=== PATIENT | female | born 1960 | race Caucasian/White ===

== ENCOUNTER 2017-07-28 17:26 | Emergency (ER) | payer OTHER, MEDICAID, SELFPAY ==
[2017-07-28 17:30] VITALS: BP 147/95; PULSE 103; RESP 22; TEMP 36.5; O2SAT 95; BMI 20.8
--- NOTE | 2017-07-28 17:37 | ED.URI ---
HPI - URI/Sore Throat <Mirtha Resendiz PA-C - Last Filed: 07/28/17 19:01> General Chief Complaint: Upper Respiratory Symptoms Stated Complaint: SICK WITH FLU/VOMITING Time Seen by Provider: 07/28/17 17:37 Source: patient Mode of arrival: ambulatory Limitations: no limitations History of Present Illness HPI Narrative: This 57-year-old female has a history of asthma exacerbations. She had onset of mild sore throat 6 days ago followed by a sinus headache, pressure, and congestion that makes her balance feel a little bit off. She also had onset of severe generalized body aches that lasted 2 or 3 days and have improved now. She is noticing a lot of postnasal drip. Cough started yesterday with a lot of green sputum. She states Slim production is actually improved today. She states she has not had wheeze, but feels more short of breath with cough. She has also had chills and sweats at home, has not checked her temperature. She denies any rash, denies any known specific exposures or recent travel. She notes that she is supposed to be on steroid inhaler but has not been able to get a prescription from her PCP so has been off of that Related Data Home Medications Medication Instructions Recorded Confirmed albuterol sulfate [Ventolin HFA] 2 pump INHALATION Q4-6H PRN 07/28/17 07/28/17 bupropion HCl [Wellbutrin XL] 300 mg PO QAM 07/28/17 07/28/17 duloxetine [Cymbalta] 20 mg PO QAM 07/28/17 07/28/17 lisinopril 10 mg PO DAILY 07/28/17 07/28/17 Previous Rx's Medication Instructions Recorded fluticasone [Flovent HFA] 2 puff INHALATION BID #12 gram 07/28/17 prednisone 40 mg PO DAILY 4 Days #8 tab 07/28/17 Allergies Allergy/AdvReac Type Severity Reaction Status Date / Time No Known Drug Allergies Allergy Verified 07/28/17 17:32 Review of Systems <Mirtha Resendiz PA-C - Last Filed: 07/28/17 19:01> Review of Systems All systems reviewed & are unremarkable except as noted in HPI and below Exam <Mirtha Resendiz PA-C - Last Filed: 07/28/17 19:01> Narrative Exam Narrative: GENERAL APPEARANCE: Patient sitting comfortably, in no distress. HEAD: Mild generalized sinus tenderness EYES: PERRL, EOMI. EARS: Normal auditory canals, TMS intact with normal light reflexes. ORAL CAVITY: Normal oropharynx. THROAT: Minimal erythema NECK/THYROID: Neck supple, full range of motion, no cervical lymphadenopathy. LUNGS: Coarse, congested breath sounds, occasional rhonchi which resolved with nebulizers. No crackles, occasional wet cough on exam HEART: RRR without murmur, nl S1, S2, no S3 or S4. EXTREMITIES: No cyanosis, no edema Initial Vital Signs Initial Vital Signs: Vital Signs Temperature 97.7 F 07/28/17 17:30 Pulse Rate 103 H 07/28/17 17:30 Respiratory Rate 22 07/28/17 17:30 Blood Pressure 147/95 H 07/28/17 17:30 Pulse Oximetry 95 07/28/17 17:30 <Elio Perkins DO - Last Filed: 07/28/17 19:56> Initial Vital Signs Initial Vital Signs: Vital Signs Temperature 97.7 F 07/28/17 17:30 Pulse Rate 103 H 07/28/17 17:30 Respiratory Rate 22 07/28/17 17:30 Blood Pressure 147/95 H 07/28/17 17:30 Pulse Oximetry 95 07/28/17 17:30 Course <Mirtha Resendiz PA-C - Last Filed: 07/28/17 19:01> Orders Ordered: ED Orders 07/28/17 17:39 XR chest 2V Stat 07/28/17 18:11 Influenza A and B by PCR Rapid Stat Discontinued Medications Albuterol (Ventolin) 2.5 mg INH [facility] Last Admin: 07/28/17 18:04 Dose: 2.5 mg Albuterol/Ipratropium (Duoneb) 3 ml INH NOW ONE Stop: 07/28/17 17:40 Last Admin: 07/28/17 17:53 Dose: 3 ml Prednisone (Deltasone) 40 mg PO NOW ONE Stop: 07/28/17 18:37 Last Admin: 07/28/17 18:45 Dose: 40 mg Vital Signs - 8 hr 07/28/17 17:30 07/28/17 17:53 07/28/17 18:05 Temperature 97.7 F Pulse Rate 103 H 92 H 72 Respiratory Rate 22 15 13 Blood Pressure 147/95 H Pulse Oximetry 95 95 96 07/28/17 19:09 Temperature Pulse Rate 101 H Respiratory Rate 18 Blood Pressure 130/90 H Pulse Oximetry 95 <Elio Perkins DO - Last Filed: 07/28/17 19:56> Orders Ordered: ED Orders 07/28/17 17:39 XR chest 2V Stat 07/28/17 18:11 Influenza A and B by PCR Rapid Stat Discontinued Medications Albuterol (Ventolin) 2.5 mg INH [facility] Last Admin: 07/28/17 18:04 Dose: 2.5 mg Albuterol/Ipratropium (Duoneb) 3 ml INH NOW ONE Stop: 07/28/17 17:40 Last Admin: 07/28/17 17:53 Dose: 3 ml Prednisone (Deltasone) 40 mg PO NOW ONE Stop: 07/28/17 18:37 Last Admin: 07/28/17 18:45 Dose: 40 mg Vital Signs - 8 hr 07/28/17 17:30 07/28/17 17:53 07/28/17 18:05 Temperature 97.7 F Pulse Rate 103 H 92 H 72 Respiratory Rate 22 15 13 Blood Pressure 147/95 H Pulse Oximetry 95 95 96 07/28/17 19:09 Temperature Pulse Rate 101 H Respiratory Rate 18 Blood Pressure 130/90 H Pulse Oximetry 95 MDM - URI/Sore Throat <Mirtha Resendiz PA-C - Last Filed: 07/28/17 19:01> Lab Data Attestation: I reviewed the patient's lab results. rapid influenza negative Lab Results 07/28/17 Range/Units 18:11 Influenza A & B (PCR) Negative (Negative) Imaging Data Chest x-ray: Radiologist's impression: View Report History [address] [address] XRay Report Signed Patient: Vera Murrieta MR#: [id number] : 1960 Acct:[id number] Age/Sex: 57 / F Date of Service: 07/28/17 Loc: ED Accession Number: [id number] Procedure: XR chest 2V Ordering Provider: Elio Perkins D.O. PROCEDURE: XR CHEST 2V INDICATIONS: cough, sob, fever 5 days ago TECHNIQUE: 2 views of the chest were acquired. COMPARISON: [facility], , CHEST 2 VIEW, 05/31/2015, 12:37. FINDINGS: Surgical changes and devices: None. Lungs and pleura: No pleural effusions or pneumothorax. There is persistent chronic bronchial wall thickening redemonstrated. There is a nodular opacity projecting over the right lung base likely representing nipple shadow. No focal consolidation. There is hyperinflation of the lungs with flattening of the hemidiaphragms compatible with COPD. Mediastinum: Mediastinal contours are unchanged. Heart size is normal. Bones and chest wall: No suspicious bony abnormalities. Soft tissues appear unremarkable. IMPRESSION: 1. No acute consolidation to suggest pneumonia. 2. Chronic bronchial wall thickening redemonstrated. 2. Nodular opacity in the right hemithorax likely represents nipple shadow. Dictated by: Vikash Stein M.D. on 07/28/2017 at 18:09 Approved by: Vikash Stein M.D. on 07/28/2017 at 18:11 <Elio Perkins DO - Last Filed: 07/28/17 19:56> Lab Data Lab Results 07/28/17 Range/Units 18:11 Influenza A & B (PCR) Negative (Negative) Discharge Plan Departure Patient Disposition: Home, Self-Care Clinical Impression: Exacerbation of asthma, Upper respiratory infection Discharge Date/Time: 07/28/17 19:10 Interventions: ED Discharge Assessment Last Done: 07/28/17 19:09 Instructions: DI for Asthma -- Adult, DI for Viral Upper Respiratory Infection -- Adult Activity Restrictions/Additional Instructions: Since you are feeling better after the breathing treatment, I think you can monitor at home. Your infection appears most likely due to a virus affecting your sinuses and causing postnasal drip, cough, and asthma flare up. I agree with you that you should be back on the steroid inhaler and I have sent a prescription for that to the pharmacy. Start that as soon as you pick it up tomorrow, and continue the prednisone for an additional 4 days also. You can use [id number] Mucinex to help with the chest congestion, and antihistamines and Sudafed as needed to help with the postnasal drip. Please return immediately as we talked about if you are feeling acutely worse again, otherwise call your PCP office 1st thing on Sunday to arrange follow-up Prescriptions: New prednisone 20 mg tablet 40 mg PO DAILY 4 Days Qty: 8 RF: 0 fluticasone [Flovent HFA] 220 mcg/actuation HFA aerosol inhaler 2 puff INHALATION BID Qty: 12 RF: 0 No Action lisinopril 10 mg Tablet 10 mg PO DAILY RF: 0 albuterol sulfate [Ventolin HFA] 90 mcg/actuation HFA aerosol inhaler 2 pump Inhalation Q4-6H PRN (Reason: Wheezing) RF: 0 bupropion HCl [Wellbutrin XL] 300 mg Tablet Extended Release 24 Hr 300 mg PO QAM RF: 0 duloxetine [Cymbalta] 20 mg Capsule,Delayed Release(Dr/Ec) 20 mg PO QAM RF: 0 Referrals: Gurpreet Sosa MD [Primary Care Provider] - <Elio Perkins DO - Last Filed: 07/28/17 19:56> Cosign ED Attending Suzanneature Attestation: I was immediately available in the department for consultation. Documentation has been reviewed. I agree with assessment and plan.
[2017-07-28 17:53] VITALS: PULSE 92; RESP 15; O2SAT 95
[2017-07-28] MEDS: ALBUTEROL/IPRATROPIUM 3 ML AMPUL INH (17:53)
--- NOTE | 2017-07-28 17:54 | ED_ITS ---
HPI - URI/Sore Throat <Mirtha Resendiz PA-C - Last Filed: 07/28/17 19:01> General Chief Complaint: Upper Respiratory Symptoms Stated Complaint: SICK WITH FLU/VOMITING Time Seen by Provider: 07/28/17 17:37 Source: patient Mode of arrival: ambulatory Limitations: no limitations History of Present Illness HPI Narrative: This 57-year-old female has a history of asthma exacerbations. She had onset of mild sore throat 6 days ago followed by a sinus headache, pressure, and congestion that makes her balance feel a little bit off. She also had onset of severe generalized body aches that lasted 2 or 3 days and have improved now. She is noticing a lot of postnasal drip. Cough started yesterday with a lot of green sputum. She states Slim production is actually improved today. She states she has not had wheeze, but feels more short of breath with cough. She has also had chills and sweats at home, has not checked her temperature. She denies any rash, denies any known specific exposures or recent travel. She notes that she is supposed to be on steroid inhaler but has not been able to get a prescription from her PCP so has been off of that Related Data Home Medications Medication Instructions Recorded Confirmed albuterol sulfate [Ventolin HFA] 2 pump INHALATION Q4-6H PRN 07/28/17 07/28/17 bupropion HCl [Wellbutrin XL] 300 mg PO QAM 07/28/17 07/28/17 duloxetine [Cymbalta] 20 mg PO QAM 07/28/17 07/28/17 lisinopril 10 mg PO DAILY 07/28/17 07/28/17 Previous Rx's Medication Instructions Recorded fluticasone [Flovent HFA] 2 puff INHALATION BID #12 gram 07/28/17 prednisone 40 mg PO DAILY 4 Days #8 tab 07/28/17 Allergies Allergy/AdvReac Type Severity Reaction Status Date / Time No Known Drug Allergies Allergy Verified 07/28/17 17:32 Review of Systems <Mirtha Resendiz PA-C - Last Filed: 07/28/17 19:01> Review of Systems All systems reviewed & are unremarkable except as noted in HPI and below Exam <Mirtha Resendiz PA-C - Last Filed: 07/28/17 19:01> Narrative Exam Narrative: GENERAL APPEARANCE: Patient sitting comfortably, in no distress. HEAD: Mild generalized sinus tenderness EYES: PERRL, EOMI. EARS: Normal auditory canals, TMS intact with normal light reflexes. ORAL CAVITY: Normal oropharynx. THROAT: Minimal erythema NECK/THYROID: Neck supple, full range of motion, no cervical lymphadenopathy. LUNGS: Coarse, congested breath sounds, occasional rhonchi which resolved with nebulizers. No crackles, occasional wet cough on exam HEART: RRR without murmur, nl S1, S2, no S3 or S4. EXTREMITIES: No cyanosis, no edema Initial Vital Signs Initial Vital Signs: Vital Signs Temperature 97.7 F 07/28/17 17:30 Pulse Rate 103 H 07/28/17 17:30 Respiratory Rate 22 07/28/17 17:30 Blood Pressure 147/95 H 07/28/17 17:30 Pulse Oximetry 95 07/28/17 17:30 <Elio Perkins DO - Last Filed: 07/28/17 19:56> Initial Vital Signs Initial Vital Signs: Vital Signs Temperature 97.7 F 07/28/17 17:30 Pulse Rate 103 H 07/28/17 17:30 Respiratory Rate 22 07/28/17 17:30 Blood Pressure 147/95 H 07/28/17 17:30 Pulse Oximetry 95 07/28/17 17:30 Course <Mirtha Resendiz PA-C - Last Filed: 07/28/17 19:01> Orders Ordered: ED Orders 07/28/17 17:39 XR chest 2V Stat 07/28/17 18:11 Influenza A and B by PCR Rapid Stat Discontinued Medications Albuterol (Ventolin) 2.5 mg INH [facility] Last Admin: 07/28/17 18:04 Dose: 2.5 mg Albuterol/Ipratropium (Duoneb) 3 ml INH NOW ONE Stop: 07/28/17 17:40 Last Admin: 07/28/17 17:53 Dose: 3 ml Prednisone (Deltasone) 40 mg PO NOW ONE Stop: 07/28/17 18:37 Last Admin: 07/28/17 18:45 Dose: 40 mg Vital Signs - 8 hr 07/28/17 17:30 07/28/17 17:53 07/28/17 18:05 Temperature 97.7 F Pulse Rate 103 H 92 H 72 Respiratory Rate 22 15 13 Blood Pressure 147/95 H Pulse Oximetry 95 95 96 07/28/17 19:09 Temperature Pulse Rate 101 H Respiratory Rate 18 Blood Pressure 130/90 H Pulse Oximetry 95 <Elio Perkins DO - Last Filed: 07/28/17 19:56> Orders Ordered: ED Orders 07/28/17 17:39 XR chest 2V Stat 07/28/17 18:11 Influenza A and B by PCR Rapid Stat Discontinued Medications Albuterol (Ventolin) 2.5 mg INH [facility] Last Admin: 07/28/17 18:04 Dose: 2.5 mg Albuterol/Ipratropium (Duoneb) 3 ml INH NOW ONE Stop: 07/28/17 17:40 Last Admin: 07/28/17 17:53 Dose: 3 ml Prednisone (Deltasone) 40 mg PO NOW ONE Stop: 07/28/17 18:37 Last Admin: 07/28/17 18:45 Dose: 40 mg Vital Signs - 8 hr 07/28/17 17:30 07/28/17 17:53 07/28/17 18:05 Temperature 97.7 F Pulse Rate 103 H 92 H 72 Respiratory Rate 22 15 13 Blood Pressure 147/95 H Pulse Oximetry 95 95 96 07/28/17 19:09 Temperature Pulse Rate 101 H Respiratory Rate 18 Blood Pressure 130/90 H Pulse Oximetry 95 MDM - URI/Sore Throat <Mirtha Resendiz PA-C - Last Filed: 07/28/17 19:01> Lab Data Attestation: I reviewed the patient's lab results. rapid influenza negative Lab Results 07/28/17 Range/Units 18:11 Influenza A & B (PCR) Negative (Negative) Imaging Data Chest x-ray: Radiologist's impression: View Report History [address] [address] XRay Report Signed Patient: Vera Murrieta MR#: [id number] : 1960 Acct:[id number] Age/Sex: 57 / F Date of Service: 07/28/17 Loc: ED Accession Number: [id number] Procedure: XR chest 2V Ordering Provider: Elio Perkins D.O. PROCEDURE: XR CHEST 2V INDICATIONS: cough, sob, fever 5 days ago TECHNIQUE: 2 views of the chest were acquired. COMPARISON: [facility], , CHEST 2 VIEW, 05/31/2015, 12:37. FINDINGS: Surgical changes and devices: None. Lungs and pleura: No pleural effusions or pneumothorax. There is persistent chronic bronchial wall thickening redemonstrated. There is a nodular opacity projecting over the right lung base likely representing nipple shadow. No focal consolidation. There is hyperinflation of the lungs with flattening of the hemidiaphragms compatible with COPD. Mediastinum: Mediastinal contours are unchanged. Heart size is normal. Bones and chest wall: No suspicious bony abnormalities. Soft tissues appear unremarkable. IMPRESSION: 1. No acute consolidation to suggest pneumonia. 2. Chronic bronchial wall thickening redemonstrated. 2. Nodular opacity in the right hemithorax likely represents nipple shadow. Dictated by: Vikash Stein M.D. on 07/28/2017 at 18:09 Approved by: Vikash Stein M.D. on 07/28/2017 at 18:11 <Elio Perkins DO - Last Filed: 07/28/17 19:56> Lab Data Lab Results 07/28/17 Range/Units 18:11 Influenza A & B (PCR) Negative (Negative) Discharge Plan Departure Patient Disposition: Home, Self-Care Clinical Impression: Exacerbation of asthma, Upper respiratory infection Discharge Date/Time: 07/28/17 19:10 Interventions: ED Discharge Assessment Last Done: 07/28/17 19:09 Instructions: DI for Asthma -- Adult, DI for Viral Upper Respiratory Infection -- Adult Activity Restrictions/Additional Instructions: Since you are feeling better after the breathing treatment, I think you can monitor at home. Your infection appears most likely due to a virus affecting your sinuses and causing postnasal drip, cough, and asthma flare up. I agree with you that you should be back on the steroid inhaler and I have sent a prescription for that to the pharmacy. Start that as soon as you pick it up tomorrow, and continue the prednisone for an additional 4 days also. You can use [id number] Mucinex to help with the chest congestion, and antihistamines and Sudafed as needed to help with the postnasal drip. Please return immediately as we talked about if you are feeling acutely worse again, otherwise call your PCP office 1st thing on Sunday to arrange follow-up Prescriptions: New prednisone 20 mg tablet 40 mg PO DAILY 4 Days Qty: 8 RF: 0 fluticasone [Flovent HFA] 220 mcg/actuation HFA aerosol inhaler 2 puff INHALATION BID Qty: 12 RF: 0 No Action lisinopril 10 mg Tablet 10 mg PO DAILY RF: 0 albuterol sulfate [Ventolin HFA] 90 mcg/actuation HFA aerosol inhaler 2 pump Inhalation Q4-6H PRN (Reason: Wheezing) RF: 0 bupropion HCl [Wellbutrin XL] 300 mg Tablet Extended Release 24 Hr 300 mg PO QAM RF: 0 duloxetine [Cymbalta] 20 mg Capsule,Delayed Release(Dr/Ec) 20 mg PO QAM RF: 0 Referrals: Gurpreet Soas MD [Primary Care Provider] - <Elio Perkins DO - Last Filed: 07/28/17 19:56> Cosign ED Attending Suzanneature Attestation: I was immediately available in the department for consultation. Documentation has been reviewed. I agree with assessment and plan.
[2017-07-28] MEDS: ALBUTEROL 2.5 MG/3 ML NEB INH (18:04)
[2017-07-28 18:05] VITALS: PULSE 72; RESP 13; O2SAT 96
[2017-07-28 18:43] LABS: Influenza A and B by PCR Rapid Negative (Negative)
[2017-07-28] MEDS: predniSONE 20 MG TABLET 40 MG PO (18:45)
[2017-07-28 19:09] VITALS: BP 130/90; PULSE 101; RESP 18; O2SAT 95
== END 2017-07-28 19:10 | disposition home or self-care (01) ==
PROVIDERS: Emergency Provider Internal Medicine; Family Provider Internal Medicine; PCP Internal Medicine
DX: J45.909 Unspecified asthma, uncomplicated (principal); J06.9 Acute upper respiratory infection, unspecified
CPT/HCPCS: 71046; 87400; 94640; 99282; 99284; J7613

== ENCOUNTER → 2019-09-29 10:56 | Outpatient (CLI) | payer OTHER, MEDICAID, SELFPAY ==
[2019-09-29 12:06] LABS: Add Manual Diff / Slide Review NO; Basophils Absolute Auto 100 /uL (0-100); Basophils Percent Auto 1.2 % (0-2); Eosinophils Absolute Auto 100 /uL (0-450); Eosinophils Percent Auto 1.3 % (2-4); Hematocrit 40.4 % (36-46); Lymphocytes Absolute Auto 2600 /uL (1100-4500); Lymphocytes Percent Auto 31.6 % (25-40); Mean Corpuscular HGB Conc 34.6 % (30-36); Mean Corpuscular Hemoglobin 34.1 PG (26-34); Mean Corpuscular Volume 98.6 fL (80-100); Monocytes Absolute Auto 500 /uL (0-900); Neutrophils Absolute Auto 4900 /uL (1500-7000); Neutrophils Percent Auto 59.9 % (50-75); Platelet Count 442 X10^3/uL (150-400); Red Cell Distribution Width 13.3 % (11.6-14.8); White Blood Cell Count 8.2 X10^3/uL (4.5-11.0)
[2019-09-29 12:15] LABS: Alanine Aminotransferase 19 IU/L (<35); Albumin 4.7 g/dL (3.5-5.0); Albumin Globulin Ratio 1.6 (1.0-2.8); Alkaline Phosphatase 44 U/L (38-126); Aspartate Aminotransferase 32 IU/L (14-36); BUN Creatinine Ratio 23.5 (6-22); Bilirubin Total 0.4 mg/dL (0.2-1.3); Blood Urea Nitrogen 12 mg/dL (7-17); Calcium 9.7 mg/dL (8.4-10.2); Carbon Dioxide 26 mmol/L (22-32); Chloride 104 mmol/L (98-107); Cholesterol 265 mg/dL (140-199); Estimated Glomerular Filt Rate > 60.0 mL/min (>60); Globulin 2.9 g/dL (1.7-4.1); Glucose 95 mg/dL (80-110); HDL Cholesterol 71 mg/dL (40-60); HEMOLYSIS < 15 (0-50); LDL Cholesterol Calculated 178 mg/dL (<100); Potassium 4.3 mmol/L (3.4-5.1); Sodium 136 mmol/L (137-145); Total Protein 7.6 g/dL (6.3-8.2); Triglycerides 80 mg/dL (35-150)
[2019-09-29 12:46] LABS: TSH w/ Reflex to FT4 2.01 uIU/mL (0.47-4.68)
== END ==
PROVIDERS: Family Provider Internal Medicine; PCP Internal Medicine; Referring Provider Registered Nurse; Visit Provider Registered Nurse
DX: E78.5 Hyperlipidemia, unspecified (principal); I10 Essential (primary) hypertension; D64.9 Anemia, unspecified; F33.1 Major depressive disorder, recurrent, moderate
CPT/HCPCS: 36415; 80053; 80061; 84443; 85025

== ENCOUNTER → 2020-05-25 14:20 | Outpatient (CLI) | payer OTHER, MEDICAID, SELFPAY ==
[2020-05-25] MEDS: COVID-19 VACC #1, MRNA(MOD) 100 MCG/0.5 ML VIAL IM (14:25)
== END ==
PROVIDERS: Family Provider Internal Medicine; PCP Registered Nurse; Visit Provider Internal Medicine
DX: Z23 Encounter for immunization (principal)
CPT/HCPCS: 0011A; 91301

== ENCOUNTER → 2020-06-23 15:48 | Outpatient (CLI) | payer OTHER, MEDICAID, SELFPAY ==
[2020-06-23] MEDS: COVID-19 VACC #2, MRNA(MOD) 100 MCG/0.5 ML VIAL IM (16:01)
== END ==
PROVIDERS: Family Provider Internal Medicine; PCP Registered Nurse; Visit Provider Internal Medicine
DX: Z23 Encounter for immunization (principal)
CPT/HCPCS: 0012A; 91301

== ENCOUNTER → 2020-07-30 08:35 | Outpatient (CLI) | payer OTHER, MEDICAID, SELFPAY ==
[2020-07-30 09:48] LABS: Alanine Aminotransferase 37 IU/L (<35); Albumin 4.4 g/dL (3.5-5.0); Albumin Globulin Ratio 1.5 (1.0-2.8); Alkaline Phosphatase 37 U/L (38-126); Aspartate Aminotransferase 48 IU/L (14-36); BUN Creatinine Ratio 18.6 (6-22); Bilirubin Total 0.3 mg/dL (0.2-1.3); Blood Urea Nitrogen 11 mg/dL (7-17); Calcium 9.8 mg/dL (8.4-10.2); Carbon Dioxide 27 mmol/L (22-32); Chloride 103 mmol/L (98-107); Cholesterol 181 mg/dL (140-199); Estimated Glomerular Filt Rate > 60.0 mL/min (>60); Globulin 2.9 g/dL (1.7-4.1); Glucose 99 mg/dL (80-110); HDL Cholesterol 79 mg/dL (40-60); HEMOLYSIS < 15 (0-50); LDL Cholesterol Calculated 85 mg/dL (<100); Potassium 4.7 mmol/L (3.4-5.1); Sodium 138 mmol/L (137-145); Total Protein 7.3 g/dL (6.3-8.2); Triglycerides 83 mg/dL (35-150)
== END ==
PROVIDERS: Family Provider Internal Medicine; PCP Registered Nurse; Referring Provider Registered Nurse; Visit Provider Registered Nurse
DX: E78.5 Hyperlipidemia, unspecified (principal); I10 Essential (primary) hypertension
CPT/HCPCS: 36415; 80053; 80061

== ENCOUNTER → 2020-09-23 08:53 | Outpatient (CLI) | payer OTHER, MEDICAID, SELFPAY ==
[2020-09-23 10:01] LABS: Alanine Aminotransferase 22 IU/L (<35); Albumin 4.2 g/dL (3.5-5.0); Albumin Globulin Ratio 1.4 (1.0-2.8); Alkaline Phosphatase 38 U/L (38-126); Aspartate Aminotransferase 31 IU/L (14-36); Bilirubin Total 0.5 mg/dL (0.2-1.3); Blood Urea Nitrogen 13 mg/dL (7-17); Calcium 9.8 mg/dL (8.4-10.2); Carbon Dioxide 28 mmol/L (22-32); Chloride 105 mmol/L (98-107); Cholesterol 201 mg/dL (140-199); Estimated Glomerular Filt Rate > 60.0 mL/min (>60); Glucose 93 mg/dL (80-110); HDL Cholesterol 78 mg/dL (40-60); HEMOLYSIS < 15 (0-50); LDL Cholesterol Calculated 108 mg/dL (<100); Potassium 4.7 mmol/L (3.4-5.1); Sodium 139 mmol/L (137-145); Total Protein 7.2 g/dL (6.3-8.2); Triglycerides 74 mg/dL (35-150)
== END ==
PROVIDERS: Family Provider Internal Medicine; PCP Registered Nurse; Referring Provider Registered Nurse; Visit Provider Registered Nurse
DX: I10 Essential (primary) hypertension (principal); E78.5 Hyperlipidemia, unspecified
CPT/HCPCS: 36415; 80053; 80061

== ENCOUNTER → 2022-06-19 10:32 | Outpatient (CLI) | payer OTHER, SELFPAY ==
[2022-06-19 11:54] LABS: Add Manual Diff / Slide Review NO; Basophils Absolute Auto 200 /uL (0-100); Eosinophils Absolute Auto 300 /uL (0-450); Eosinophils Percent Auto 3.3 % (2-4); Hematocrit 41.6 % (36-46); Lymphocytes Absolute Auto 1900 /uL (1100-4500); Lymphocytes Percent Auto 23.8 % (25-40); Mean Corpuscular HGB Conc 33.8 % (30-36); Mean Corpuscular Hemoglobin 33.5 PG (26-34); Mean Corpuscular Volume 99.3 fL (80-100); Monocytes Absolute Auto 800 /uL (0-900); Monocytes Percent Auto 9.9 % (3-14); Neutrophils Absolute Auto 4900 /uL (1500-7000); Platelet Count 435 X10^3/uL (150-400); Red Blood Cell Count 4.19 X10^6/uL (4.0-5.2); White Blood Cell Count 8.1 X10^3/uL (4.5-11.0)
[2022-06-19 12:03] LABS: Alanine Aminotransferase 27 IU/L (<35); Albumin 4.2 g/dL (3.5-5.0); Albumin Globulin Ratio 1.2 (1.0-2.8); Alkaline Phosphatase 44 U/L (38-126); Aspartate Aminotransferase 36 IU/L (14-36); BUN Creatinine Ratio 18.2 (6-22); Bilirubin Total 0.5 mg/dL (0.2-1.3); Blood Urea Nitrogen 10 mg/dL (7-17); Carbon Dioxide 29 mmol/L (22-32); Chloride 102 mmol/L (98-107); Cholesterol 250 mg/dL (140-199); Estimated Glomerular Filt Rate > 60 mL/min (>60); Globulin 3.5 g/dL (1.7-4.1); Glucose 85 mg/dL (80-110); HDL Cholesterol 86 mg/dL (40-60); HEMOLYSIS < 15 (0-50); LDL Cholesterol Calculated 148 mg/dL (<100); Potassium 4.5 mmol/L (3.4-5.1); Sodium 137 mmol/L (137-145); Total Protein 7.7 g/dL (6.3-8.2); Triglycerides 78 mg/dL (35-150)
[2022-06-19 12:41] LABS: TSH w/ Reflex to FT4 2.24 uIU/mL (0.47-4.68)
== END ==
PROVIDERS: Family Provider Internal Medicine; PCP Family Medicine; Referring Provider Family Medicine; Visit Provider Family Medicine
DX: D64.9 Anemia, unspecified (principal); E78.5 Hyperlipidemia, unspecified; F41.8 Other specified anxiety disorders; I10 Essential (primary) hypertension; J30.2 Other seasonal allergic rhinitis; J45.909 Unspecified asthma, uncomplicated
CPT/HCPCS: 36415; 80053; 80061; 84443; 85025

== ENCOUNTER → 2022-07-18 15:32 | Outpatient (CLI) | payer OTHER, SELFPAY ==
--- NOTE | 2022-07-18 15:34 | DI.CT.S_ITS ---
PROCEDURE: CT CHEST WO CON INDICATIONS: Screening for lung cancer TECHNIQUE: Noncontrast 2.0-2.5 mm thick sections acquired from the pulmonary apices to the posterior costophrenic angles. 7 mm thick axial MIP, and 5 mm coronal and sagittal reformats were then acquired. A low radiation dose technique was utilized. COMPARISON: None. FINDINGS: Image quality: Diagnostic, given the low radiation dose technique. There is respiratory motion at the lung bases creating some artifact. Lungs and pleura: Airways demonstrate mild bilateral perihilar bronchial wall thickening with several short-segment airway narrowings. A cluster of small patchy foci of perivascular irregular part solid nodules in superior segment left lower lobe, 4/82. There are no ground-glass opacities or dense consolidations. Mild centrilobular emphysematous changes. Nodules: 1. Lateral subpleural right lower lobe part calcified solid nodule measuring 0.4 cm, 3/261. 2. 2 mm anterolateral left upper lobe solid nodule, 3/113. 3. Subpleural anterolateral lingular 3 mm ground-glass nodule, 3/182. 4. Pleural-based, left lateral lower lobe part solid indistinct nodule measuring 4 mm, 3/266. Mediastinum: Heart size is normal. No pericardial effusion. No mediastinal adenopathy by size criteria. Thoracic aorta and central pulmonary arteries are normal in size. Esophagus is normal in caliber. No hiatal hernia. Bones and chest wall: No suspicious bony lesions. No vertebral body compression fractures. Intact bilateral breast implants. No axillary or supraclavicular adenopathy by size criteria. Thyroid gland is diminutive.. Abdomen: Visualized upper abdomen solid organs and bowel loops appear normal in the absence of contrast. IMPRESSION: 1. Bilateral solid and non solid lung nodules measuring 4 mm and less, benign by size criteria. 2. Small area of perivascular patchy airspace opacity, probably infectious or inflammatory. 3. Findings of mild bronchitis with several small area of airway occlusions. LUNG-RADS two; Continue annual low-dose chest CT screening as long as the patient meets established criteria. Dictated by: Gina Shea M.D. on 07/19/2022 at 10:06 Approved by: Gina Shea M.D. on 07/19/2022 at 10:19
== END ==
PROVIDERS: Family Provider Internal Medicine; PCP Family Medicine; Referring Provider Family Medicine; Visit Provider Family Medicine
DX: Z12.2 Encounter for screening for malignant neoplasm of respiratory organs (principal); R91.8 Other nonspecific abnormal finding of lung field; J45.909 Unspecified asthma, uncomplicated; F41.8 Other specified anxiety disorders; E78.5 Hyperlipidemia, unspecified; D64.9 Anemia, unspecified; I10 Essential (primary) hypertension
CPT/HCPCS: 71250

== ENCOUNTER 2022-07-28 11:57 | Inpatient (IN) | payer OTHER, SELFPAY ==
[2022-07-28] VITALS (29 sets, daily range): BP systolic 113–152; BP diastolic 77–96; PULSE 91–124; RESP 16–25; TEMP 36.1–37.7; O2SAT 89–94; BMI 18.3; BMI 18.9
--- NOTE | 2022-07-28 12:12 | ED.SOB ---
HPI - SOB/Dyspnea General Chief Complaint: Shortness of Breath/Dyspnea Stated Complaint: SOB Time Seen by Provider: 07/28/22 12:03 Mode of arrival: Wheelchair History of Present Illness HPI Narrative: 62-year-old former smoker with history of reported reactive airway disease presents from the walk-in clinic for worsening shortness of breath and cough with production of yellowish sputum for about the past 2 weeks or so. Initially there was some thought about whether this may be related to seasonal allergies but there was not response to antihistamines. She had been seen and evaluated at the walk-in clinic and was placed on steroids. She is been using nebs at home without improvement. She denies runny nose, sore throat. She is had no fever or chills. She denies nausea, vomiting or diarrhea. She becomes increasingly short of breath with exertion and does have some improvement with rest. Related Data Previous Rx's Medication Instructions Recorded albuterol sulfate 90 mcg/actuation 2 puff inhalation Q4-6H PRN asthma 06/19/22 aerosol inhaler #18 grams bupropion HCl 150 mg 24 hr tablet, 150 mg PO QAM #30 tabs 06/19/22 extended release bupropion HCl 75 mg tablet See Rx Instructions .Route 06/19/22 .COMPLEX #7 tabs montelukast 10 mg tablet 10 mg PO BEDTIME #30 tabs 06/19/22 tretinoin 0.1 % topical cream 1 applic topical BEDTIME PRN acne 06/19/22 vulgaris #20 grams varenicline 0.5 mg (11)-1 mg (42) See Rx Instructions PO PER PKG DIR 06/19/22 tablets in a dose pack (Chantix #53 ea Starting Month Box) varenicline 1 mg tablet (Chantix 1 mg PO BID #56 tabs 06/19/22 Continuing Month Box) benzonatate 100 mg capsule 100 mg PO BID PRN cough #20 caps 07/22/22 dextromethorphan polistirex 30 10 ml PO Q12H PRN cough #89 mL 07/22/22 mg/5 mL oral susp ext.release 12hr (Delsym 12 hour) fluticasone propionate 50 1 spray intranasal Q12H #16 grams 07/22/22 mcg/actuation nasal spray,suspension (Flonase Allergy Relief) prednisone 20 mg tablet 40 mg PO DAILY #8 tabs 07/22/22 Allergies Allergy/AdvReac Type Severity Reaction Status Date / Time No Known Drug Allergies Allergy Verified 07/28/22 12:08 Review of Systems Review of Systems Narrative: GENERAL: See HP HEENT: Denies sinus pain, ear pain, sore throat, difficulty swallowing, dizziness. RESPIRATORY: See HPI CARDIOVASCULAR: Denies chest pain, palpitations, orthopnea, edema, GASTROINTESTINAL: Denies nausea, vomiting, abdominal pain, diarrhea, constipation, melena. : Denies dysuria, frequency, incontinence, hematuria, urinary retention. MUSCULOSKELETAL: denies weakness, joint pain, or bony pain SKIN: Denies rash, skin lesions, or other NEUROLOGIC: Denies weakness, headache, numbness, change in speech, confusion, seizures, incoordination. PSYCHIATRIC: No concerning psychosocial issues. 12 point review of systems is negative except for those stated above Patient History Medical History Anemia Anxiety and depression Asthma Colon cancer screening Depression, major, recurrent, moderate Elevated liver enzymes Encounter for smoking cessation counseling Essential hypertension History of ITP Hyperlipidemia Pancreatitis Seasonal allergies Surgical History History of splenectomy Social History Smoking Status: Former smoker alcohol intake: current Smoking Status: Former smoker alcohol intake frequency: 0-2 drinks per day Alcohol type: wine Substance Use Type: does not use Exam Narrative Exam Narrative: GENERAL: [62] year old patient appears stated age. Well-developed patient, in mild distress. HEAD: Atraumatic. Normocephalic. EYES: Pupils equal round and reactive. Extraocular motions intact. No scleral icterus. No injection or drainage. ENT: Nose without bleeding, purulent drainage. Throat without erythema, tonsillar hypertrophy or exudate. Airway patent. NECK: Trachea midline. Non tender CARDIOVASCULAR: Regular rate and rhythm without murmurs, gallops, or rubs. RESPIRATORY: Decreased breath sounds throughout with faint crackles in bilateral bases, there is increased work of breathing but no significant hypoxemia GASTROINTESTINAL: Abdomen soft, non-tender, nondistended. EXTREMITIES: No edema or joint tenderness. BACK: Nontender without deformity or crepitance. No flank tenderness. NEURO: AOx3. SKIN: No rash or erythema of visible areas Initial Vital Signs Initial Vital Signs: Vital Signs Temperature 99.8 F H 07/28/22 12:04 Respiratory Rate 23 07/28/22 12:04 Blood Pressure 152/94 H 07/28/22 12:04 Pulse Oximetry 91 07/28/22 12:04 Oxygen Delivery Method Room Air 07/28/22 12:04 Course Orders Ordered: ED Orders 07/28/22 12:07 Complete Blood Count AUTO DIFF Stat Comprehensive Metabolic Panel Stat D Dimer Stat Lactate (Lactic Acid) Stat Lipase Stat Magnesium Stat NT-proBNP (BNP-Adult 18+) Stat Procalcitonin Stat Prothrombin Time INR Stat Respiratory Panel (Film Array) Stat Troponin & CK Cardiac Panel Stat 07/28/22 12:08 Measure peak expiratory flow ONCE 07/28/22 12:14 EKG-12 Lead Stat 07/28/22 12:35 CT angio chest PE protocol Stat Sputum Culture Stat 07/28/22 13:40 Blood Culture Stat Albuterol/Ipratropium (Albuterol/Ipratropium 3 Ml Ampul) 3 ml INH Q1H PRN PRN Reason: Shortness Of Breath Last Admin: 07/28/22 12:36 Dose: 3 ml Documented By: SAT Discontinued Medications Sodium Chloride (Normal Saline 0.9%) 1,000 mls @ 1,000 mls/hr IV BOLUS ONE Stop: 07/28/22 13:07 Last Infusion: 07/28/22 13:45 Dose: 0 mls/hr Documented By: Infusion: 07/28/22 13:02 Dose: 1,000 mls/hr Documented By: Infusion: 07/28/22 12:40 Dose: 0 mls/hr Documented By: Admin: 07/28/22 12:17 Dose: 1,000 mls/hr Documented By: FLAVIA Ceftriaxone Sodium 1,000 mg/ (Sodium Chloride) 100 mls @ 200 mls/hr IV NOW ONE Stop: 07/28/22 14:01 Azithromycin 500 mg/ Dextrose 250 mls @ 250 mls/hr IV NOW ONE Stop: 07/28/22 14:01 Methylprednisolone (Methylprednisolone 125 Mg/2 Ml Vial) 125 mg IV NOW ONE Stop: 07/28/22 12:09 Last Admin: 07/28/22 12:16 Dose: 125 mg Documented By: FLAVIA Vital Signs Vital signs: Vital Signs - 8 hr 07/28/22 12:04 07/28/22 12:06 07/28/22 12:15 Temperature 99.8 F H Pulse Rate 124 H 121 H Respiratory Rate 23 22 Blood Pressure 152/94 H Pulse Oximetry 91 93 94 Oxygen Delivery Method Room Air 07/28/22 12:30 07/28/22 12:30 07/28/22 12:50 Temperature Pulse Rate 119 H 119 H Respiratory Rate 20 Blood Pressure 130/88 Pulse Oximetry 93 Oxygen Delivery Method 07/28/22 12:51 07/28/22 12:51 07/28/22 13:00 Temperature Pulse Rate 118 H Respiratory Rate 20 Blood Pressure 150/90 H 134/78 Pulse Oximetry 91 Oxygen Delivery Method 07/28/22 13:00 07/28/22 13:40 07/28/22 13:15 Temperature Pulse Rate 114 H 120 H 120 H Respiratory Rate 18 20 Blood Pressure Pulse Oximetry 92 92 91 Oxygen Delivery Method Room Air 07/28/22 13:30 07/28/22 13:30 07/28/22 13:45 Temperature Pulse Rate 114 H 117 H Respiratory Rate 17 20 Blood Pressure 133/85 Pulse Oximetry 93 94 Oxygen Delivery Method MDM - SOB/Dyspnea Lab Data 07/28/22 12:07 07/28/22 12:07 Labs: Lab Results 07/28/22 07/28/22 07/28/22 Range/Units 12:07 12:07 12:07 WBC 26.0 H (4.5-11.0) X10^3/uL RBC 4.07 (4.0-5.2) X10^6/uL Hgb 13.8 (12.0-16.0) g/dL Hct 39.8 (36-46) % MCV 97.9 (80-100) fL MCH 33.8 (26-34) PG MCHC 34.6 (30-36) % RDW 13.4 (11.6-14.8) % Plt Count 609 H (150-400) X10^3/uL Neut % (Auto) 82.9 H (50-75) % Lymph % (Auto) 6.5 L (25-40) % [place] % (Auto) 9.5 (3-14) % Eos % (Auto) 0.8 L (2-4) % Baso % (Auto) 0.3 (0-2) % Neut # (Auto) 33304 H (0555-9313) /uL Lymph # (Auto) 1700 (4914-2032) /uL [place] # (Auto) 2500 H (0-900) /uL Eos # (Auto) 200 (0-450) /uL Baso # (Auto) 100 (0-100) /uL PT 13.7 H (10.1-12.7) SECONDS INR 1.2 (0.9-1.3) D-Dimer 1032 H (<500) ng/ml Sodium 131 L (137-145) mmol/L Potassium 4.0 (3.4-5.1) mmol/L Chloride 96 L (98-107) mmol/L Carbon Dioxide 27 (22-32) mmol/L BUN 8 (7-17) mg/dL Creatinine 0.47 L (0.52-1.04) mg/dL Estimated GFR > 60 (>60) mL/min BUN/Creatinine Ratio 17.0 (6-22) Glucose 134 H (80-110) mg/dL Lactate (0.7-2.1) mmol/L Calcium 9.4 (8.4-10.2) mg/dL Magnesium 2.0 (1.6-2.3) mg/dL Total Bilirubin 0.4 (0.2-1.3) mg/dL AST 26 (14-36) IU/L ALT 24 (<35) IU/L Alkaline Phosphatase 87 (38-126) U/L Total Creatine Kinase 64 (30-135) U/L CK-MB (CK-2) TNP CK-MB (CK-2) Rel Index TNP Troponin I < 0.012 (0.01-0.034) ng/mL NT-Pro-B Natriuret Pep 47 (<125) pg/mL Total Protein 8.1 (6.3-8.2) g/dL Albumin 4.2 (3.5-5.0) g/dL Globulin 3.9 (1.7-4.1) g/dL Albumin/Globulin Ratio 1.1 (1.0-2.8) Lipase 69 (23-300) U/L Procalcitonin 0.07 (<0.5) ng/mL Chlamy pneumoniae PCR (Not Detect) Adenovirus (PCR) (Not Detect) B. pertussis DNA (PCR) (Not Detecte) B.parapertussis DNA PCR (Not Detecte) Coronavirus OC43 (PCR) (Not Detect) Coronavirus HKU1 (PCR) (Not Detect) Coronavirus 229E (PCR) (Not Detect) SARS-CoV-2 (PCR) (Not Detecte) Coronavirus NL63 (PCR) (Not Detect) Human Metapneumovir PCR (Not Detect) Influenza Type A (PCR) (Not Detect) Influenza Type B (PCR) (Not Detect) M. pneumoniae (PCR) (Not Detect) Parainfluenza 1 (PCR) (Not Detect) Parainfluenza 2 (PCR) (Not Detect) Parainfluenza 3 (PCR) (Not Detect) Parainfluenza 4 (PCR) (Not Detect) RSV (PCR) (Not Detect) Entero/Rhino (PCR) (Not Detect) 07/28/22 07/28/22 Range/Units 12:07 12:07 WBC (4.5-11.0) X10^3/uL RBC (4.0-5.2) X10^6/uL Hgb (12.0-16.0) g/dL Hct (36-46) % MCV (80-100) fL MCH (26-34) PG MCHC (30-36) % RDW (11.6-14.8) % Plt Count (150-400) X10^3/uL Neut % (Auto) (50-75) % Lymph % (Auto) (25-40) % [place] % (Auto) (3-14) % Eos % (Auto) (2-4) % Baso % (Auto) (0-2) % Neut # (Auto) (3289-8974) /uL Lymph # (Auto) (2490-3963) /uL [place] # (Auto) (0-900) /uL Eos # (Auto) (0-450) /uL Baso # (Auto) (0-100) /uL PT (10.1-12.7) SECONDS INR (0.9-1.3) D-Dimer (<500) ng/ml Sodium (137-145) mmol/L Potassium (3.4-5.1) mmol/L Chloride (98-107) mmol/L Carbon Dioxide (22-32) mmol/L BUN (7-17) mg/dL Creatinine (0.52-1.04) mg/dL Estimated GFR (>60) mL/min BUN/Creatinine Ratio (6-22) Glucose (80-110) mg/dL Lactate 1.1 (0.7-2.1) mmol/L Calcium (8.4-10.2) mg/dL Magnesium (1.6-2.3) mg/dL Total Bilirubin (0.2-1.3) mg/dL AST (14-36) IU/L ALT (<35) IU/L Alkaline Phosphatase (38-126) U/L Total Creatine Kinase (30-135) U/L CK-MB (CK-2) CK-MB (CK-2) Rel Index Troponin I (0.01-0.034) ng/mL NT-Pro-B Natriuret Pep (<125) pg/mL Total Protein (6.3-8.2) g/dL Albumin (3.5-5.0) g/dL Globulin (1.7-4.1) g/dL Albumin/Globulin Ratio (1.0-2.8) Lipase (23-300) U/L Procalcitonin (<0.5) ng/mL Chlamy pneumoniae PCR Not detected (Not Detect) Adenovirus (PCR) Not detected (Not Detect) B. pertussis DNA (PCR) Not detected (Not Detecte) B.parapertussis DNA PCR Not detected (Not Detecte) Coronavirus OC43 (PCR) Not detected (Not Detect) Coronavirus HKU1 (PCR) Not detected (Not Detect) Coronavirus 229E (PCR) Not detected (Not Detect) SARS-CoV-2 (PCR) Not detected (Not Detecte) Coronavirus NL63 (PCR) Not detected (Not Detect) Human Metapneumovir PCR Not detected (Not Detect) Influenza Type A (PCR) Not detected (Not Detect) Influenza Type B (PCR) Not detected (Not Detect) M. pneumoniae (PCR) Not detected (Not Detect) Parainfluenza 1 (PCR) Not detected (Not Detect) Parainfluenza 2 (PCR) Not detected (Not Detect) Parainfluenza 3 (PCR) Not detected (Not Detect) Parainfluenza 4 (PCR) Not detected (Not Detect) RSV (PCR) Not detected (Not Detect) Entero/Rhino (PCR) Not detected (Not Detect) Urine Dip Bedside Urine Glucose Negative Bedside Urine Bilirubin - Negative Bedside Urine Ketone - Negative Urine Specific [place] 1.005 Bedside Urine Occult Blood - Negative Bedside Urine pH 7.5 Bedside Urine Protein - Negative Bedside Urine Urobilinogen - Negative Bedside Urine Nitrite - Negative Bedside Urine Leukocytes - Negative Esterase MDM Narrative Medical decision making narrative: 62-year-old female former smoker has progressive worsening shortness of breath over the past 2 weeks and had little to no response to antihistamines, steroids and bronchodilators. She is had increasing production of yellowish sputum and had presented to the walk-in clinic for follow-up today and was redirected here given worsening symptoms and abnormal vital signs. She does have leukocytosis and relative left shift, critically elevated D-dimer and a CT angiogram of the chest was ordered which thankfully demonstrates no evidence of a large central pulmonary embolism but evidence suggestive of an infectious versus inflammatory process. Given the severity of her symptoms and abnormal vital signs patient will be hospitalized and treated for pneumonia, sputum culture and blood cultures are pending. Hospitalist is happy to bring on to her service. We discussed the patient's clinical course and she recommends initial treatment with Rocephin and azithromycin in the emergency department and will make alterations as needed. Patient understands and agrees with the diagnosis and plan Discharge Plan Departure Patient Disposition: Admitted as Observation Clinical Impression: Acute dyspnea, Pneumonia Admit Date/Time: 07/28/22 14:03
[2022-07-28] MEDS: methylPREDNISolone 125 MG/2 ML VIAL IV (12:16)
[2022-07-28] MEDS: SODIUM CHLORIDE 0.9% 1,000 ML 1000 ML IV (12:17)
[2022-07-28 12:22] LABS: INR 1.2 (0.9-1.3); Prothrombin Time 13.7 SECONDS (10.1-12.7)
[2022-07-28 12:24] LABS: D Dimer 1032 ng/ml (<500)
[2022-07-28 12:30] LABS: Lactate (Lactic Acid) 1.1 mmol/L (0.7-2.1)
[2022-07-28 12:31] LABS: Alanine Aminotransferase 24 IU/L (<35); Albumin 4.2 g/dL (3.5-5.0); Albumin Globulin Ratio 1.1 (1.0-2.8); Alkaline Phosphatase 87 U/L (38-126); Aspartate Aminotransferase 26 IU/L (14-36); Bilirubin Total 0.4 mg/dL (0.2-1.3); Blood Urea Nitrogen 8 mg/dL (7-17); Calcium 9.4 mg/dL (8.4-10.2); Carbon Dioxide 27 mmol/L (22-32); Chloride 96 mmol/L (98-107); Creatine Kinase 64 U/L (30-135); Estimated Glomerular Filt Rate > 60 mL/min (>60); Globulin 3.9 g/dL (1.7-4.1); Glucose 134 mg/dL (80-110); Lipase 69 U/L (23-300); Sodium 131 mmol/L (137-145); Total Protein 8.1 g/dL (6.3-8.2)
[2022-07-28 12:32] LABS: Add Manual Diff / Slide Review NO; Basophils Absolute Auto 100 /uL (0-100); Basophils Percent Auto 0.3 % (0-2); Eosinophils Absolute Auto 200 /uL (0-450); Eosinophils Percent Auto 0.8 % (2-4); Hematocrit 39.8 % (36-46); Hemoglobin 13.8 g/dL (12.0-16.0); Lymphocytes Absolute Auto 1700 /uL (1100-4500); Lymphocytes Percent Auto 6.5 % (25-40); Mean Corpuscular HGB Conc 34.6 % (30-36); Mean Corpuscular Hemoglobin 33.8 PG (26-34); Mean Corpuscular Volume 97.9 fL (80-100); Monocytes Absolute Auto 2500 /uL (0-900); Monocytes Percent Auto 9.5 % (3-14); Neutrophils Absolute Auto 21600 /uL (1500-7000); Neutrophils Percent Auto 82.9 % (50-75); Platelet Count 609 X10^3/uL (150-400); Red Blood Cell Count 4.07 X10^6/uL (4.0-5.2); Red Cell Distribution Width 13.4 % (11.6-14.8)
--- NOTE | 2022-07-28 12:35 | DI.CT.S_ITS ---
PROCEDURE: CT ANGIO CHEST PE PROTOCOL INDICATIONS: SOB, tachycardia, worsening, critical Dimer TECHNIQUE: After the administration of intravenous contrast, 2 mm thick sections acquired from the pulmonary apices to the posterior costophrenic angles. 3-dimensional maximum intensity projection (MIP) coronal and sagittal reformats were then acquired through the thorax. For radiation dose reduction, the following was used: automated exposure control, adjustment of mA and/or kV according to patient size. COMPARISON: [facility], CT, CT CHEST WO CON, 07/18/2022, 15:40. FINDINGS: Image quality: Excellent. Pulmonary arteries: Pulmonary arteries are normal in size, and demonstrate no intraluminal filling defects to suggest central pulmonary embolism. Lungs and pleura: Scattered tree-in-bud nodularity is seen throughout both lungs, most prominent at the left lung base, which is new when compared to the CT from 07/18/2022 and is suspicious for an infectious or inflammatory process. There is chronic bronchial wall thickening bilaterally. No pleural effusions or pneumothorax. Mediastinum: Heart size is normal, without pericardial effusion. Mild coronary artery calcifications. No mediastinal or hilar adenopathy. Thoracic aorta is normal in caliber and enhancement. Esophagus is normal in caliber, without hiatal hernia. Bones and chest wall: Bilateral retropectoral saline implants are intact. No suspicious bony lesions. A nondisplaced fracture at the anterolateral aspect the left 6th rib demonstrates mild healing changes that are new when compared to the prior exam. Chronic deformity of the left 12th rib. Thyroid is unremarkable. No axillary or supraclavicular adenopathy. Abdomen: Status post splenectomy. Visualized upper abdominal solid organs appear normal in the early arterial phase of enhancement. IMPRESSION: 1. No acute pulmonary embolus. 2. Scattered tree-in-bud nodularity in both lungs is new when compared to the CT from 07/18/2022 and is suspicious for an infectious or inflammatory process. 3. Subacute nondisplaced fracture of the anterolateral left 6th rib. Approved by: Danish Kong M.D. on 07/28/2022 at 13:10
[2022-07-28] MEDS: ALBUTEROL/IPRATROPIUM 3 ML AMPUL INH (12:36)
[2022-07-28 12:45] LABS: HEMOLYSIS < 15 (0-50); NT-proBNP (BNP-Adult 18+) 47 pg/mL (<125); Procalcitonin 0.07 ng/mL (<0.5); Troponin I < 0.012 ng/mL (0.01-0.034)
[2022-07-28 14:02] LABS: Adenovirus Not Detected (Not Detect); B. parapertussis Not Detected (Not Detecte); Bordetella pertussis Not Detected (Not Detecte); Chlamydophila pneumoniae Not Detected (Not Detect); Coronavirus 229E Not Detected (Not Detect); Coronavirus HKU1 Not Detected (Not Detect); Coronavirus NL 63 Not Detected (Not Detect); Coronavirus OC43 Not Detected (Not Detect); Human Metapneumovirus Not Detected (Not Detect); Human Rhinovirus/Enterovirus Not Detected (Not Detect); Influenza A Not Detected (Not Detect); Influenza B Not Detected (Not Detect); Mycoplasma pneumoniae Not Detected (Not Detect); Parainfluenza Virus 1 Not Detected (Not Detect); Parainfluenza Virus 2 Not Detected (Not Detect); Parainfluenza Virus 3 Not Detected (Not Detect); Parainfluenza Virus 4 Not Detected (Not Detect); Respiratory Syncytial Virus Not Detected (Not Detect); SARS- CoV-2 Not Detected (Not Detecte)
[2022-07-28] MEDS: cefTRIAXone 1,000 MG in SODIUM CHLORIDE 0.9% 100 ML 200 MG IV (14:10)
[2022-07-28] MEDS: AZITHROMYCIN 500 MG in DEXTROSE 5% IN WATER 250 ML 250 MG IV (14:46)
--- NOTE | 2022-07-28 15:18 | PC.NURSE ---
Patient oxygen saturation wasn't maintaining above 98% on room air. This RN placed patient on 2L nasal cannula and provider informed. Patient wasn't consistently placing over 92% on 2L. Hospitialist in room and patient moved to 4L via nasal cannula and was able to maintain saturation above 92%. Information [facility] for [facility].
--- NOTE | 2022-07-28 15:20 | P.HP_ITS ---
History of Present Illness History of Present Illness Chief complaint: SOB Narrative: 62-year-old female with remote history of ITP status post splenectomy complicated by pancreatitis and splenic wound bed abscess, asthma, longstanding tobacco dependence, and major depressive disorder who presented to the emergency department with 2 week history of shortness of breath. Patient reports that approximately 2 weeks ago she developed what she thought was allergy/asthma symptoms. She states she had an increased cough during the day. She initially thought it was just a flare-up of her asthma from environmentally allergens. She states she coughed a lot during the day. She also noted decreased appetite. She presented to the walk-in clinic on July 22. At that time, it was felt she likely was having allergy/asthma exacerbation. She was placed on Delsym, Flonase, ipratropium nasal spray, Tessalon Perles, and a 40 mg prednisone dose for 4 days. Despite these interventions, patient reports she continued to worsen. She is had increasing post-tussive cough. She noted her sputum has changed from white to brown a few days ago. She is feeling weak, tired, and having increased fatigue. She states she is waking up at night feeling short of breath. She notes she is lost approximately 9 lb, as she was 130 lb at her family doctor visit and is now 121 lb. She reports subjective fevers but notes that a friend checked her temperature for her and she was afebrile. She has had chills and sweats. No dysphagia. She reports a history of pneumonia on 2 or 3 other occasions in her life, 1 episode at the age of 19, in the last 6 or 7 years ago. She is somewhat vague about her tobacco use history. She states she smoked approximately 1 pack per day. She states she quit 4-5 years ago for 3 years, b ut then started again, and then reports she has since stopped. At her primary care office visit last month, she reported ongoing tobacco use. [facility] Medical History Anemia Anxiety and depression Asthma Colon cancer screening Depression, major, recurrent, moderate Elevated liver enzymes Encounter for smoking cessation counseling Essential hypertension History of ITP Hyperlipidemia Pancreatitis Seasonal allergies Surgical History History of splenectomy Family History (Updated 07/28/22 @ 15:27 by Eileen Stinson MD) Father Hypertension Mother Stroke Brother CAD (coronary artery disease) Brother Renal failure Social History household members: children Smoking Status: Former smoker alcohol intake: current Comment: Patient was smoking as recently as last month. She drinks 2 glasses of wine daily. She lives home alone. She works as a caregiver. Meds Home Medications and Allergies Home Medications Medication Instructions Recorded Confirmed Type albuterol sulfate 90 mcg/actuation 2 puff inhalation Q4-6H PRN asthma 06/19/22 06/19/22 Rx aerosol inhaler #18 grams bupropion HCl 150 mg 24 hr tablet, 150 mg PO QAM #30 tabs 06/19/22 06/19/22 Rx extended release bupropion HCl 75 mg tablet See Rx Instructions .Route 06/19/22 06/19/22 Rx .COMPLEX #7 tabs montelukast 10 mg tablet 10 mg PO BEDTIME #30 tabs 06/19/22 06/19/22 Rx tretinoin 0.1 % topical cream 1 applic topical BEDTIME PRN acne 06/19/22 06/19/22 Rx vulgaris #20 grams varenicline 0.5 mg (11)-1 mg (42) See Rx Instructions PO PER PKG DIR 06/19/22 06/19/22 Rx tablets in a dose pack (Chantix #53 ea Starting Month Box) varenicline 1 mg tablet (Chantix 1 mg PO BID #56 tabs 06/19/22 06/19/22 Rx Continuing Month Box) benzonatate 100 mg capsule 100 mg PO BID PRN cough #20 caps 07/22/22 07/22/22 Rx dextromethorphan polistirex 30 10 ml PO Q12H PRN cough #89 mL 07/22/22 07/22/22 Rx mg/5 mL oral susp ext.release 12hr (Delsym 12 hour) fluticasone propionate 50 1 spray intranasal Q12H #16 grams 07/22/22 07/22/22 Rx mcg/actuation nasal spray,suspension (Flonase Allergy Relief) prednisone 20 mg tablet 40 mg PO DAILY #8 tabs 07/22/22 07/22/22 Rx Allergies Allergy/AdvReac Type Severity Reaction Status Date / Time No Known Drug Allergies Allergy Verified 07/28/22 12:08 Review of Systems Review of Systems Narrative: All other systems were reviewed negative Exam Vital Signs (past 8 hours): - 07/28/22 12:04 07/28/22 12:06 07/28/22 12:15 Temperature 99.8 F H Pulse Rate 124 H 121 H Respiratory Rate 23 22 Blood Pressure 152/94 H Pulse Oximetry 91 93 94 Oxygen Delivery Method Room Air Oxygen Flow Rate 07/28/22 12:30 07/28/22 12:30 07/28/22 12:50 Temperature Pulse Rate 119 H 119 H Respiratory Rate 20 Blood Pressure 130/88 Pulse Oximetry 93 Oxygen Delivery Method Oxygen Flow Rate 07/28/22 12:51 07/28/22 12:51 07/28/22 13:00 Temperature Pulse Rate 118 H Respiratory Rate 20 Blood Pressure 150/90 H 134/78 Pulse Oximetry 91 Oxygen Delivery Method Oxygen Flow Rate 07/28/22 13:00 07/28/22 13:40 07/28/22 13:15 Temperature Pulse Rate 114 H 120 H 120 H Respiratory Rate 18 20 Blood Pressure Pulse Oximetry 92 92 91 Oxygen Delivery Method Room Air Oxygen Flow Rate 07/28/22 13:30 07/28/22 13:30 07/28/22 13:45 Temperature Pulse Rate 114 H 117 H Respiratory Rate 17 20 Blood Pressure 133/85 Pulse Oximetry 93 94 Oxygen Delivery Method Oxygen Flow Rate 07/28/22 14:00 07/28/22 14:00 07/28/22 14:15 Temperature Pulse Rate 116 H 114 H Respiratory Rate 20 21 Blood Pressure 136/80 Pulse Oximetry 91 89 L Oxygen Delivery Method Room Air Room Air Oxygen Flow Rate 07/28/22 14:20 07/28/22 14:25 07/28/22 14:30 Temperature Pulse Rate 118 H 113 H Respiratory Rate 20 17 Blood Pressure 131/82 Pulse Oximetry 91 91 Oxygen Delivery Method Nasal Cannula Nasal Cannula Oxygen Flow Rate 2 2 07/28/22 14:30 07/28/22 14:35 07/28/22 14:40 Temperature Pulse Rate 114 H 114 H 115 H Respiratory Rate 18 20 22 Blood Pressure Pulse Oximetry 91 91 91 Oxygen Delivery Method Nasal Cannula Nasal Cannula Nasal Cannula Oxygen Flow Rate 2 2 2 07/28/22 14:45 07/28/22 14:45 07/28/22 14:50 Temperature Pulse Rate 112 H 112 H Respiratory Rate 21 22 Blood Pressure 126/80 Pulse Oximetry 91 92 Oxygen Delivery Method Nasal Cannula Nasal Cannula Oxygen Flow Rate 2 4 07/28/22 14:55 07/28/22 15:00 07/28/22 15:00 Temperature Pulse Rate 114 H 114 H Respiratory Rate 20 24 Blood Pressure 133/79 Pulse Oximetry 92 93 Oxygen Delivery Method Nasal Cannula Nasal Cannula Oxygen Flow Rate 4 4 07/28/22 15:05 07/28/22 15:10 07/28/22 15:15 Temperature Pulse Rate 114 H 112 H Respiratory Rate 21 23 Blood Pressure 129/79 Pulse Oximetry 94 93 Oxygen Delivery Method Nasal Cannula Nasal Cannula Oxygen Flow Rate 4 4 07/28/22 15:15 Temperature Pulse Rate 112 H Respiratory Rate 25 H Blood Pressure Pulse Oximetry 93 Oxygen Delivery Method Nasal Cannula Oxygen Flow Rate 4 Oxygen Delivery Method Nasal Cannula Oxygen Flow Rate 4 Narrative Exam Narrative: GEN: Middle-aged female, chronically ill-appearing, Alert and oriented x3, no acute distress HEENT: Normocephalic, face symmetric, pupils equal round reactive to light, extraocular movements intact, sclerae anicteric, conjunctiva clear, nares patent, oropharynx reveals an intact soft and hard palate with moist mucous membranes, dentition is fair NECK: Supple, no lymphadenopathy, thyroid without enlargement or nodularity, carotids no bruits CHEST: Respiratory excursions symmetric, scattered expiratory wheezes anteriorly, mild fine crackles at end inspiration bilaterally CV: Mildly tachycardic with regular rhythm, no murmurs, rubs, gallops, PMI nondisplaced ABD: Soft, nontender, nondistended, bowel sounds present in all 4 quadrants, no organomegaly or masses appreciated EXTR: Warm, well perfused, no clubbing/cyanosis/edema SKIN: Warm and dry, without rash NEURO: Alert and oriented x3, cranial nerves 2 through 12 are intact and symmetric bilaterally, motor strength 5/5 throughout, sensation intact throughout PSYCH: Mood and affect is within normal limits, judgment and insight are appropriate Objective Labs 07/28/22 12:07 07/28/22 12:07 Labs: Laboratory Results - last 24 hr 07/28/22 07/28/22 07/28/22 12:07 12:07 12:07 WBC 26.0 H RBC 4.07 Hgb 13.8 Hct 39.8 MCV 97.9 MCH 33.8 MCHC 34.6 RDW 13.4 Plt Count 609 H Neut % (Auto) 82.9 H Lymph % (Auto) 6.5 L [place] % (Auto) 9.5 Eos % (Auto) 0.8 L Baso % (Auto) 0.3 Neut # (Auto) 71561 H Lymph # (Auto) 1700 [place] # (Auto) 2500 H Eos # (Auto) 200 Baso # (Auto) 100 PT 13.7 H INR 1.2 D-Dimer 1032 H Sodium 131 L Potassium 4.0 Chloride 96 L Carbon Dioxide 27 BUN 8 Creatinine 0.47 L Estimated GFR > 60 BUN/Creatinine Ratio 17.0 Glucose 134 H Lactate Calcium 9.4 Magnesium 2.0 Total Bilirubin 0.4 AST 26 ALT 24 Alkaline Phosphatase 87 Total Creatine Kinase 64 CK-MB (CK-2) TNP CK-MB (CK-2) Rel Index TNP Troponin I < 0.012 NT-Pro-B Natriuret Pep 47 Total Protein 8.1 Albumin 4.2 Globulin 3.9 Albumin/Globulin Ratio 1.1 Lipase 69 Procalcitonin 0.07 Chlamy pneumoniae PCR Adenovirus (PCR) B. pertussis DNA (PCR) B.parapertussis DNA PCR Coronavirus OC43 (PCR) Coronavirus HKU1 (PCR) Coronavirus 229E (PCR) SARS-CoV-2 (PCR) Coronavirus NL63 (PCR) Human Metapneumovir PCR Influenza Type A (PCR) Influenza Type B (PCR) M. pneumoniae (PCR) Parainfluenza 1 (PCR) Parainfluenza 2 (PCR) Parainfluenza 3 (PCR) Parainfluenza 4 (PCR) RSV (PCR) Entero/Rhino (PCR) 07/28/22 07/28/22 12:07 12:07 WBC RBC Hgb Hct MCV MCH MCHC RDW Plt Count Neut % (Auto) Lymph % (Auto) [place] % (Auto) Eos % (Auto) Baso % (Auto) Neut # (Auto) Lymph # (Auto) [place] # (Auto) Eos # (Auto) Baso # (Auto) PT INR D-Dimer Sodium Potassium Chloride Carbon Dioxide BUN Creatinine Estimated GFR BUN/Creatinine Ratio Glucose Lactate 1.1 Calcium Magnesium Total Bilirubin AST ALT Alkaline Phosphatase Total Creatine Kinase CK-MB (CK-2) CK-MB (CK-2) Rel Index Troponin I NT-Pro-B Natriuret Pep Total Protein Albumin Globulin Albumin/Globulin Ratio Lipase Procalcitonin Chlamy pneumoniae PCR Not detected Adenovirus (PCR) Not detected B. pertussis DNA (PCR) Not detected B.parapertussis DNA PCR Not detected Coronavirus OC43 (PCR) Not detected Coronavirus HKU1 (PCR) Not detected Coronavirus 229E (PCR) Not detected SARS-CoV-2 (PCR) Not detected Coronavirus NL63 (PCR) Not detected Human Metapneumovir PCR Not detected Influenza Type A (PCR) Not detected Influenza Type B (PCR) Not detected M. pneumoniae (PCR) Not detected Parainfluenza 1 (PCR) Not detected Parainfluenza 2 (PCR) Not detected Parainfluenza 3 (PCR) Not detected Parainfluenza 4 (PCR) Not detected RSV (PCR) Not detected Entero/Rhino (PCR) Not detected Assessment & Plan Assessment & Plan narrative: 1. Community-acquired pneumonia Patient presents with worsening cough, change in sputum color, increasing shortness of breath, systemic symptoms, leukocytosis, and CT finding showing tree-in-bud appearance. She was initially treated with steroids and allergy medications but did not improve. She reports changing symptoms over the last week as noted in HPI. Patient will be placed on Rocephin and azithromycin to cover community-acquired pneumonia. She is post splenectomy and at risk for encapsulated organisms, but ceftriaxone should cover this well. Respiratory viral panel is negative. She was placed on supplemental oxygen initially at 2 liters/minute, now at 4 liters/minute, but there is no documented hypoxia to a ccount for that increased. She does not have evidence of hypoxic respiratory failure at this time. 2. Leukocytosis White blood cell count on admission is 26,000. There is likely some component of elevation secondary to the prednisone burst she received. However, this is higher than expected for steroid effect. Given her elevated D-dimer, and evidence of pneumonia, suspect the majority of this elevation is due to her acute infection. 3. Protein calorie malnutrition, acute on chronic Patient reported during her primary care visit last month she would lost 14 lb over the past 2 years. She currently reports a 9 lb weight loss over the past month. He describes difficulty eating related to post-tussive emesis. Will add multivitamin and thiamine as well as have a dietitian consult. 4. Thrombocytosis Likely reactive in nature from her acute infection. Will monitor. 5. Hyponatremia Likely due to poor oral intake/hypovolemic state. Will monitor. 6. Asthma She is prescribed Singulair but ran out of it 1 week ago. Will resume her usual outpatient dose. 7. Post splenectomy patient Should have routine vaccination for Haemophilus influenza, pneumococcus, meningococcus, and annual influenza. She reports this has never been recommended previously. Advised she should follow up with her PCP after discharge to pursue further. 8. Major depressive disorder Continue bupropion Code status Full Prophylaxis Low Sujey score Disposition Admit under observation status
--- NOTE | 2022-07-28 15:21 | PC.NURSE ---
Day shift: In room from ED at approx 1520. A&Ox4. Does c/o rib pain and Pt informed that she has a rib Fx per x-ray. Oriented to room and call light. 4L NC 94%. Call light in reach.
[2022-07-28] MEDS: guaiFENesin ER 600 MG TAB 1200 MG PO ×2 (15:39→21:25)
[2022-07-28] MEDS: SODIUM CHLORIDE 0.9% 1,000 ML 100 ML IV (15:40)
[2022-07-28] MEDS: ACETAMINOPHEN 325 MG TABLET 650 MG PO (15:42)
[2022-07-28] MEDS: TRAMADOL 50 MG TABLET PO ×2 (17:08→21:24)
[2022-07-28] MEDS: diphenhydrAMINE 25 MG TABLET 50 MG PO (21:25)
[2022-07-28] MEDS: BENZONATATE 100 MG CAPSULE PO (21:25)
[2022-07-28] MEDS: LORazepam 0.5 MG TABLET PO (21:25)
[2022-07-28] MEDS: HYDROCODONE/ACET 5/325 TABLET 1 TAB PO (22:18)
[2022-07-29] VITALS (8 sets, daily range): BP systolic 126–140; BP diastolic 85–91; PULSE 75–101; RESP 18–21; TEMP 36.6–36.9; O2SAT 90–97
[2022-07-29 05:07] LABS: Add Manual Diff / Slide Review NO; Basophils Absolute Auto 100 /uL (0-100); Basophils Percent Auto 0.6 % (0-2); Eosinophils Absolute Auto 0 /uL (0-450); Hematocrit 33.3 % (36-46); Hemoglobin 11.5 g/dL (12.0-16.0); Lymphocytes Absolute Auto 1800 /uL (1100-4500); Lymphocytes Percent Auto 8.4 % (25-40); Mean Corpuscular HGB Conc 34.5 % (30-36); Mean Corpuscular Volume 98.7 fL (80-100); Monocytes Absolute Auto 1200 /uL (0-900); Monocytes Percent Auto 5.6 % (3-14); Neutrophils Absolute Auto 18600 /uL (1500-7000); Neutrophils Percent Auto 85.4 % (50-75); Platelet Count 548 X10^3/uL (150-400); Red Blood Cell Count 3.38 X10^6/uL (4.0-5.2); Red Cell Distribution Width 13.2 % (11.6-14.8); White Blood Cell Count 21.8 X10^3/uL (4.5-11.0)
[2022-07-29 05:22] LABS: BUN Creatinine Ratio 28.2 (6-22); Blood Urea Nitrogen 11 mg/dL (7-17); Calcium 8.6 mg/dL (8.4-10.2); Carbon Dioxide 26 mmol/L (22-32); Chloride 104 mmol/L (98-107); Estimated Glomerular Filt Rate > 60 mL/min (>60); Glucose 122 mg/dL (80-110); HEMOLYSIS < 15 (0-50); Potassium 4.4 mmol/L (3.4-5.1); Sodium 134 mmol/L (137-145)
[2022-07-29] MEDS: ALBUTEROL 2.5 MG/3 ML NEB (ADULT) INH ×3 (09:19→23:07)
[2022-07-29] MEDS: BENZONATATE 100 MG CAPSULE PO ×2 (09:37→23:20)
[2022-07-29] MEDS: THIAMINE 100 MG TABLET PO (09:38)
[2022-07-29] MEDS: MULTIVITAMIN 1 TABLET 1 TAB PO (09:38)
[2022-07-29] MEDS: TRAMADOL 50 MG TABLET PO (09:38)
[2022-07-29] MEDS: ACETAMINOPHEN 325 MG TABLET 650 MG PO (09:39)
[2022-07-29] MEDS: guaiFENesin ER 600 MG TAB 1200 MG PO ×2 (09:39→20:09)
[2022-07-29] MEDS: cefTRIAXone 1,000 MG in SODIUM CHLORIDE 0.9% 100 ML 200 MG IV (13:22)
[2022-07-29] MEDS: AZITHROMYCIN 500 MG in DEXTROSE 5% IN WATER 250 ML 250 MG IV (14:09)
--- NOTE | 2022-07-29 14:35 | PM.PN.1 ---
Subjective Subjective Interval history: 62-year-old female with remote history of ITP status post splenectomy complicated by pancreatitis and splenic wound bed abscess, asthma versus COPD, longstanding tobacco dependence, and major depressive disorder who was admitted yesterday with community-acquired pneumonia. She was also found to have a subacute left 6th rib fracture, likely Sustained during coughing spells. Patient reports she is feeling much better today. She is been able to eat. She continues to be on supplemental oxygen but her O2 sats currently are 92-93%. She is using the spirometer intermittently. Currently able to get it up to about 700 cc. She denies any ongoing sputum production. Exam Vital Signs (past 8 hours): - 07/29/22 08:00 07/29/22 09:36 07/29/22 11:07 Temperature 98.4 F Pulse Rate 96 H 101 H Respiratory Rate 20 18 Blood Pressure 140/89 Pulse Oximetry 91 90 L Oxygen Delivery Method Nasal Cannula Nasal Cannula Oxygen Flow Rate 2.5 2 07/29/22 11:35 Temperature Pulse Rate Respiratory Rate Blood Pressure Pulse Oximetry 91 Oxygen Delivery Method Room Air Oxygen Flow Rate 2 Oxygen Delivery Method Room Air Oxygen Flow Rate 2 Narrative Exam Narrative: GEN: Aged female,Alert and oriented x 3, NAD HEENT:NC, Face symmetric CHEST: Respiratory excursions symmetric, coarse butCTAB CV: RRR, no M/R/G ABD: Soft, NT/ND, BT present in all 4 quadrants, no organomegaly or masses EXTR: warm, well perfused, no C/C/E SKIN: warm and dry, no rash NEURO: Alert and oriented x 3, nonfocal Objective Labs 07/29/22 04:45 07/29/22 04:45 Labs: Laboratory Results - last 24 hr 07/29/22 07/29/22 04:45 04:45 WBC 21.8 H RBC 3.38 L Hgb 11.5 L Hct 33.3 L MCV 98.7 MCH 34.0 MCHC 34.5 RDW 13.2 Plt Count 548 H Neut % (Auto) 85.4 H Lymph % (Auto) 8.4 L [place] % (Auto) 5.6 Eos % (Auto) 0.0 L Baso % (Auto) 0.6 Neut # (Auto) 90474 H Lymph # (Auto) 1800 [place] # (Auto) 1200 H Eos # (Auto) 0 Baso # (Auto) 100 Sodium 134 L Potassium 4.4 Chloride 104 Carbon Dioxide 26 BUN 11 Creatinine 0.39 L Estimated GFR > 60 BUN/Creatinine Ratio 28.2 H Glucose 122 H Calcium 8.6 PFSH Medical History Anemia Anxiety and depression Asthma Colon cancer screening Depression, major, recurrent, moderate Elevated liver enzymes Encounter for smoking cessation counseling Essential hypertension History of ITP Hyperlipidemia Pancreatitis Seasonal allergies Surgical History History of splenectomy Family History (Updated 07/28/22 @ 15:27 by Eileen Stinson MD) Father Hypertension Mother Stroke Brother CAD (coronary artery disease) Brother Renal failure Social History household members: children Smoking Status: Former smoker alcohol intake: current Assessment & Plan Assessment & Plan narrative: 1. Community-acquired pneumonia improving after initiation on Rocephin and azithromycin. While I was in the room, I turned her oxygen back down from 3.5 L to 2 L. Orders have been written for ongoing weaning. She is not had any documented hypoxia. Continue spirometry and increasing ambulation. 2. Leukocytosis White blood cell count on admission is 26,000. It is improved today at 21.8. Will continue to monitor. 3. Protein calorie malnutrition, acute on chronic Patient reported during her primary care visit last month she would lost 14 lb over the past 2 years.? She currently reports a 9 lb weight loss over the past month.? Continue multivitamin and thiamine. Appetite is improved here in the hospital. I am uncertain if the dietitian is available on the weekend for consultation. 4. Thrombocytosis Likely reactive in nature from her acute infection.? Improved today From 609-548.Will monitor. 5. Hyponatremia Likely due to poor oral intake/hypovolemic state.? improved from 131-134 today. Will monitor. 6. Asthma She is prescribed Singulair but ran out of it 1 week ago.? Will resume her usual outpatient dose. 7. Post splenectomy patient Should have routine vaccination for Haemophilus influenza, pneumococcus, meningococcus, and annual influenza.? She reports this has never been recommended previously.? Advised she should follow up with her PCP after discharge to pursue further. 8. Major depressive disorder Continue bupropion 9. Subacute left 6th rib fracture discussed with her recommendation for follow-up with her PCP to get a DEXA scan performed. Is at risk for osteoporosis given her longstanding tobacco use history and petite stature. Code status Full Prophylaxis Low Sujey score Disposition Possible discharge home later today if she is successfully weaned off of oxygen And tolerating activity. Quality VTE Deep Vein Thrombosis/Pulmonary Embolism Present on Admission: No
--- NOTE | 2022-07-29 14:52 | CM.DANOTE ---
Discharge Planning/Care Management CM Discharge Assessment Start: 07/29/22 14:48 Freq: Status: Active Protocol: Document 07/29/22 14:48 KARRIE (Rec: 07/29/22 14:52 KARRIE [id number]) Discharge Planning Assessment Assigned Spot Welder JOHN Swift DPOA/Assigned Designee Name mary Nguyen Contact Information [phone] Advance Directives? No History Provided By Patient,Medical Record Has Patient been admitted in last 30 No days? Prior Living Arrangements House Household Members children Type of transporation used prior to Drives own vehicle admit Independent with ADL's Yes Is patient alert and oriented? Yes Barriers to Discharge No Comment 62 yo F admitted for management of Community- acquired pneumonia. PCP Misael Ansari [facility] Patient [employer] [employer], heavy smoker, lives w/dtr Possible discharge home today or tomorrow depending on dependence on O2. No needs from this CM team identified Discharge Plan Home Transportation Arrangement Family Referrals Initiated None needed
[2022-07-29] MEDS: HYDROCODONE/ACET 5/325 TABLET 1 TAB PO ×2 (15:22→23:20)
[2022-07-29] MEDS: LORazepam 0.5 MG TABLET PO (15:22)
[2022-07-29] MEDS: MONTELUKAST 10 MG TABLET PO (15:22)
--- NOTE | 2022-07-29 20:00 | PC.NURSE ---
RN came to this LAB AIDE and reported that there was a interesting smell coming from the patients room and that when she went into the room to introduce herself that is hazy. RN asked this LAB AIDE to keep a look out for anything suspicious. This LAB AIDE was passing by the patients door when a sound of vape was going off and the pulse ox was alarming. This LAB AIDE went into the room and saw a small black vape with a flower design on it laying on the patients lap. When asked what was on her lap patient stated I was just cleaning out my purse and my work bag and found it. It is to be noted that patients purse and bag where sitting on the chair next to her closed. Patient then grab her bag and place the vape into it. When asked the patient if this LAB AIDE could lock up the vape with her other belongs and that it would be returned to her at her discharge. Patient agreed and gave it to this LAB AIDE. This LAB AIDE then reported and gave the vape to RN. Coord aware as well.
[2022-07-29] MEDS: CEFDINIR 300 MG CAPSULE PO (20:09)
[2022-07-30 04:00] VITALS: BP 142/90; PULSE 71; RESP 15; TEMP 36.2; O2SAT 94
[2022-07-30] MEDS: BENZONATATE 100 MG CAPSULE PO (08:37)
[2022-07-30] MEDS: AZITHROMYCIN 250 MG TABLET PO (08:37)
[2022-07-30] MEDS: HYDROCODONE/ACET 5/325 TABLET 1 TAB PO (08:37)
[2022-07-30] MEDS: guaiFENesin ER 600 MG TAB 1200 MG PO (08:38)
[2022-07-30] MEDS: MONTELUKAST 10 MG TABLET PO (08:38)
[2022-07-30] MEDS: MULTIVITAMIN 1 TABLET 1 TAB PO (08:38)
[2022-07-30] MEDS: THIAMINE 100 MG TABLET PO (08:38)
[2022-07-30] MEDS: ALBUTEROL 2.5 MG/3 ML NEB (ADULT) INH (08:45)
[2022-07-30 08:47] VITALS: PULSE 91; RESP 18; O2SAT 91
[2022-07-30 08:52] VITALS: O2SAT 91
[2022-07-30] MEDS: CEFDINIR 300 MG CAPSULE PO (09:22)
[2022-07-30 09:24] VITALS: BP 130/93; PULSE 96; RESP 17; TEMP 37.1; O2SAT 90
[2022-07-30 11:29] VITALS: O2SAT 91
--- NOTE | 2022-07-30 13:42 | PM.DS.1 ---
History of Present Illness History of Present Illness Chief complaint: SOB Narrative: 62-year-old female with remote history of ITP status post splenectomy complicated by pancreatitis and splenic wound bed abscess, asthma, longstanding tobacco dependence, and major depressive disorder who presented to the emergency department with 2 week history of shortness of breath. Patient reports that approximately 2 weeks ago she developed what she thought was allergy/asthma symptoms. She states she had an increased cough during the day. She initially thought it was just a flare-up of her asthma from environmentally allergens. She states she coughed a lot during the day. She also noted decreased appetite. She presented to the walk-in clinic on July 22. At that time, it was felt she likely was having allergy/asthma exacerbation. She was placed on Delsym, Flonase, ipratropium nasal spray, Tessalon Perles, and a 40 mg prednisone dose for 4 days. Despite these interventions, patient reports she continued to worsen. She is had increasing post-tussive cough. She noted her sputum has changed from white to brown a few days ago. She is feeling weak, tired, and having increased fatigue. She states she is waking up at night feeling short of breath. She notes she is lost approximately 9 lb, as she was 130 lb at her family doctor visit and is now 121 lb. She reports subjective fevers but notes that a friend checked her temperature for her and she was afebrile. She has had chills and sweats. No dysphagia. She reports a history of pneumonia on 2 or 3 other occasions in her life, 1 episode at the age of 19, in the last 6 or 7 years ago. She is somewhat vague about her tobacco use history. She states she smoked approximately 1 pack per day. She states she quit 4-5 years ago for 3 years, but then started again, and then reports she has since stopped. At her primary care office visit last month, she reported ongoing tobacco use. Discharge Providers Provider Date of admission: 07/28/22 14:03 Discharge Date: 07/30/22 Primary care physician: Misael Durbin DO Consults: 07/28/22 15:36 Consult to Dietitian, Adult Routine Comment: Reason For Exam: Wt loss, acute on chronic malnutrition Discharge provider: Eileen Stinson MD Summary Hospital Course Discharge Diagnosis: 1. Community-acquired pneumonia, improved 2. Leukocytosis , improved 3. acute hypoxic respiratory failure,resolved 4. Protein calorie malnutrition, acute on chronic 5. Thrombocytosis, felt to be reactive in nature 6. Hyponatremia, improved 7. Asthma/ COPD 8. Post splenectomy patient 9. Major depressive disorder 10. Subacute left 6th rib fracture Hospital Course: Patient was admitted with a 2 week history of increasing shortness of breath, cough, and more recent change in her sputum color. She was found to have evidence of pneumonia on imaging. She was initially placed on supplemental oxygen for comfort, but over the course of her hospitalization it was noted that she did have exertional hypoxia. On the day following admission, she reported improvement in her appetite and some improvement in her breathing. She was successfully weaned from 4 L of oxygen to 2 L of oxygen. On the evening before d/c, there was concern that pt was vaping in her hospital room, as the DIRECTOR OF PARTNER MARKETING noted an unusual smell in the room, and the room appeared to be a bit hazy. Vape was collected from pt and added to her belongings. On the date of discharge, patient reported significant improvement. She was successfully weaned to room air. She was tolerating oral antibiotics. Ambulatory desat study was done and her oxygenation maintained at 89% or above. Due to wheezing noted on the date of d/c (and suspicion that her asthma may actually be COPD), she is being placed on a prednisone taper at d/c. Patient is discharged in stable condition. Status at Discharge Cognitive/behavioral status at discharge: at baseline, oriented Overall status at discharge: patient is progressing back to baseline Time Spent with Patient Time spent: Less than 30 minutes Exam Vital Signs (past 8 hours): - 07/30/22 08:47 07/30/22 08:52 07/30/22 07:00 Temperature Pulse Rate 91 H Respiratory Rate 18 Blood Pressure Pulse Oximetry 91 91 Oxygen Delivery Method Room Air Room Air Room Air Oxygen Flow Rate 0 07/30/22 09:24 07/30/22 11:29 Temperature 98.8 F Pulse Rate 96 H Respiratory Rate 17 Blood Pressure 130/93 H Pulse Oximetry 90 L 91 Oxygen Delivery Method Room Air Oxygen Flow Rate 0 Oxygen Delivery Method Room Air Oxygen Flow Rate 0 Narrative Exam Narrative: GEN: Pleasant middle aged female, Alert and oriented x 3, NAD HEENT:NC, Face symmetric CHEST: Respiratory excursions symmetric,mild expiratory wheezes bilaterally CV: RRR, no M/R/G ABD: Soft, NT/ND, BT present in all 4 quadrants, no organomegaly or masses EXTR: warm, well perfused, no C/C/E SKIN: warm and dry, no rash NEURO: Alert and oriented x 3, nonfocal Objective Labs 07/29/22 04:45 07/29/22 04:45 REPLACED BY [facility] Medical History Anemia Anxiety and depression Asthma Colon cancer screening Depression, major, recurrent, moderate Elevated liver enzymes Encounter for smoking cessation counseling Essential hypertension History of ITP Hyperlipidemia Pancreatitis Seasonal allergies Surgical History History of splenectomy Family History (Updated 07/28/22 @ 15:27 by Eileen Stinson MD) Father Hypertension Mother Stroke Brother CAD (coronary artery disease) Brother Renal failure Social History household members: children Smoking Status: Former smoker alcohol intake: current Discharge Plan Discharge Plan Patient Disposition: Home Provider Discharge Comment: You were admitted with pneumonia. He will be sent home on 1 antibiotic which you will take twice daily until it is gone. a few missed a dose, please take it as soon as you remember. If it is close to when the next dose is due, just continue taking as prescribed until the antibiotics are complete. If you develop any loose stools, please get a probiotic [id number]. Please abstain from smoking or vaping particularly while you are ill, as it can make your respiratory status worse. You will also be placed on a prednisone taper as you do have some wheezing secondary to your pneumonia. Consider using cough drops as needed to help reduce your coughing spells, particularly at night. as we discussed, you should see your primary care provider to get a bone mineral density scan to evaluate for osteoporosis. You also need to get vaccinations due to your post splenectomy state. Return to the ED: Worsening shortness of breath, fevers, or inability to hold down food, liquids, or medications. Discharge orders & Medications Prescriptions: New cefdinir 300 mg Capsule 300 mg PO BID Qty: 8 0RF guaifenesin [Mucus Relief ER] 600 mg Tablet Extended Release 12hr 1,200 mg PO BID Qty: 30 0RF prednisone 20 mg tablet 40 mg PO DAILY Qty: 15 0RF Rx Instructions: Take two tabs daily x 2 days, then 1.5 tabs daily x 3 days, then 1 tab daily x 3 days, then 1/2 tab daily x 3 days, then stop Continued benzonatate 100 mg capsule 100 mg PO BID PRN (Reason: cough) Qty: 20 0RF fluticasone propionate [Flonase Allergy Relief] 50 mcg/actuation spray,suspension 1 spray intranasal Q12H Qty: 16 0RF Rx Instructions: administer into each nostril albuterol sulfate 90 mcg/actuation HFA aerosol inhaler 2 puff Inhalation Q4-6H PRN (Reason: asthma) Qty: 18 2RF bupropion HCl 75 mg tablet See Rx Instructions .ROUTE .COMPLEX Qty: 7 0RF Dose Instruction: take 1 tablet by mouth twice a day Rx Instructions: take 1 tablet by mouth a day bupropion HCl 150 mg tablet extended release 24 hr 150 mg PO QAM Qty: 30 5RF tretinoin 0.1 % cream 1 applic TOP BEDTIME PRN (Reason: acne vulgaris) Qty: 20 2RF montelukast 10 mg tablet 10 mg PO BEDTIME Qty: 30 3RF varenicline [Chantix Starting Month Box] 0.5 mg (11)- 1 mg (42) tablets,dose pack See Rx Instructions PO PER PKG DIR Qty: 53 0RF Rx Instructions: PO PER PKG DIR varenicline [Chantix Continuing Month Box] 1 mg tablet 1 mg PO BID Qty: 56 1RF Discontinued prednisone 20 mg tablet 40 mg PO DAILY Qty: 8 0RF dextromethorphan polistirex [Delsym 12 hour] 30 mg/5 mL suspension,extended rel 12 hr 10 ml PO Q12H PRN (Reason: cough) Qty: 89 0RF Follow up/Referrals: Misael Durbin, DO [Primary Care Provider] - Diet/Activity/Treatments Diet: Regular Activity: As tolerated Oxygen: N/A Visit Report/Discharge Packet Instructions: Smoking Cessation for Older Adults: It's Not Too Late!, Tips to Help You Stop Smoking, Nicotine Addiction, DI for Pneumonia -- Adult, How to Quit Tobacco Products Stand Alone Forms: Patient Portal/API Discharge Data Primary Care Provider: Misael Durbin Attending Provider: Eileen Stinson Admit Date/Time: 07/28/22 14:03 Quality VTE Deep Vein Thrombosis/Pulmonary Embolism Present on Admission: No
== END 2022-07-30 14:10 | disposition home or self-care (01) | DRG 193 ==
LOC: ED 14:04 → AC 14:04
PROVIDERS: Admitting Provider Family Medicine; Emergency Provider Emergency Medicine; Family Provider Internal Medicine; PCP Family Medicine; Referring Provider Emergency Medicine; Visit Provider Family Medicine
DX: J18.9 Pneumonia, unspecified organism (principal); J96.01 Acute respiratory failure with hypoxia; S22.32XA Fracture of one rib, left side, initial encounter for closed fracture; E46 Unspecified protein-calorie malnutrition; Z68.1 Body mass index [BMI] 19.9 or less, adult; D75.839 Thrombocytosis, unspecified; F32.9 Major depressive disorder, single episode, unspecified; J44.9 Chronic obstructive pulmonary disease, unspecified; X58.XXXA Exposure to other specified factors, initial encounter; Z20.822 Contact with and (suspected) exposure to COVID-19; Z87.891 Personal history of nicotine dependence
CPT/HCPCS: 36415; 71275; 80048; 80053; 81003; 82550; 83605; 83690; 83735; 83880; 84145; 84484; 85025; 85379; 85610; 87040; 87070; 87205; 87633; 93005; 93010; 94640; 94760; 96365; 96375; 99285; G0378; J0696; J2930; J7613; Q9967

== ENCOUNTER → 2022-09-19 14:43 | Outpatient (CLI) | payer OTHER, SELFPAY ==
[2022-07-28 15:21] VITALS: BMI 18.9
--- NOTE | 2022-09-19 14:59 | DI.DEXA.S_ITS ---
Bone Density Report Name: JAVI DAVIDSON Age: 62 Sex: Female Ethnicity: White Date of : 1960 Indication: postmenopausal; screening for osteoporosis; Referring Provider: MICKY BARNES Study: Bone densitometry was performed. Exam Date: September 19, 2022 Accession number: [id number] Bone Density: Region BMD T-score Z-score Classification AP Spine(L1-L4) 1.039 -0.1 1.7 Normal Femoral Neck (Left) 0.742 -1.0 0.5 Normal Total Hip (Left) 0.834 -0.9 0.3 Normal Femoral Neck (Right) 0.769 -0.7 0.8 Normal Total Hip (Right) 0.798 -1.2 0.0 Osteopenia Total Hip Mean 0.816 -1.1 0.2 Osteopenia World Health Organization criteria for BMD impression classify patients as: Normal (T-score at or above -1.0), Osteopenia (T-score between -1.0 and -2.5), or Osteoporosis (T-score at or below -2.5). 10-year Fracture Risk(1): Major Osteoporotic Fracture 8.2% Hip Fracture 1.4% Reported Risk Factors: [place] (), Neck BMD=0.742, BMI=19.6, smoking, alcohol use (1) FRAX(R) Version 3.08. Fracture probability calculated for an untreated patient. Fracture probability may be lower if the patient has received treatment. Impression: The patient has low bone mass, based on the Right Total Hip T-score. The patient has an estimated ten-year risk of hip fracture of 1.4% and an estimated ten-year risk of major fracture of 8.2%, based on the WHO FRAX algorithm. The patient has risk factors, including: smoking, excessive alcohol use. Discussion: BONE DENSITY IS LOW AT ONE OR MORE SKELETAL SITES. This patient's lowest T-score is low at one or more skeletal sites. It meets the World Health Organization's (WHO) criteria for ?low bone mass? (T-score between -1.0 and -2.5). The patient's 10-year risk of fracture as calculated by FRAX is less than the threshold where pharmacological therapy is recommended by the National Osteoporosis Foundation (NOF). However, all treatment decisions require clinical judgment and consideration of individual patient factors, including patient preferences, comorbidities, previous drug use, risk factors not captured in the FRAX model (e.g., frailty, falls, vitamin D deficiency, increased bone turnover, interval significant decline in bone density) and possible under or overestimation of fracture risk by FRAX. The patient should follow a healthful lifestyle (good nutrition with adequate calcium and vitamin D, and appropriate weight-bearing exercise). Follow-Up: Consider repeating this study in 2 to 3 years to reassess this patient's status, or sooner if there is some new clinical indication. Reported by: JANEE CUEVAS M.D on 09/19/2022 3:09:00 PM.
== END ==
PROVIDERS: Family Provider Internal Medicine; PCP Family Medicine; Referring Provider Family Medicine; Visit Provider Family Medicine
DX: M85.88 Other specified disorders of bone density and structure, other site (principal); Z13.820 Encounter for screening for osteoporosis; Z78.0 Asymptomatic menopausal state
CPT/HCPCS: 77080

== ENCOUNTER → 2022-10-10 16:32 | Outpatient (CLI) | payer OTHER, SELFPAY ==
[2022-07-28 15:21] VITALS: BMI 18.9
[2022-10-10 18:24] LABS: Add Manual Diff / Slide Review NO; Basophils Absolute Auto 100 /uL (0-100); Basophils Percent Auto 1.1 % (0-2); Eosinophils Absolute Auto 300 /uL (0-450); Eosinophils Percent Auto 3.3 % (2-4); Hematocrit 40.7 % (36-46); Hemoglobin 14.2 g/dL (12.0-16.0); Lymphocytes Absolute Auto 2600 /uL (1100-4500); Lymphocytes Percent Auto 29.8 % (25-40); Mean Corpuscular HGB Conc 34.9 % (30-36); Mean Corpuscular Hemoglobin 34.2 PG (26-34); Mean Corpuscular Volume 98.2 fL (80-100); Monocytes Absolute Auto 1000 /uL (0-900); Monocytes Percent Auto 11.9 % (3-14); Neutrophils Absolute Auto 4700 /uL (1500-7000); Neutrophils Percent Auto 53.9 % (50-75); Platelet Count 412 X10^3/uL (150-400); Red Blood Cell Count 4.14 X10^6/uL (4.0-5.2); Red Cell Distribution Width 13.7 % (11.6-14.8); White Blood Cell Count 8.8 X10^3/uL (4.5-11.0)
[2022-10-10 18:53] LABS: HEMOLYSIS < 15 (0-50); Iron 105 ug/dL (37-170)
[2022-10-10 19:05] LABS: Percent Iron Saturation 40 % (15-50); Total Iron Binding Capacity 265 ug/dL (265-497); Transferrin 208 mg/dL (206-381)
[2022-10-10 19:06] LABS: Alanine Aminotransferase 27 IU/L (<35); Albumin 4.3 g/dL (3.5-5.0); Albumin Globulin Ratio 1.3 (1.0-2.8); Alkaline Phosphatase 50 U/L (38-126); Aspartate Aminotransferase 36 IU/L (14-36); BUN Creatinine Ratio 22.6 (6-22); Bilirubin Total 0.3 mg/dL (0.2-1.3); Blood Urea Nitrogen 14 mg/dL (7-17); Calcium 9.4 mg/dL (8.4-10.2); Carbon Dioxide 33 mmol/L (22-32); Chloride 101 mmol/L (98-107); Cholesterol 241 mg/dL (140-199); Estimated Glomerular Filt Rate > 60 mL/min (>60); Globulin 3.3 g/dL (1.7-4.1); Glucose 91 mg/dL (80-110); HDL Cholesterol 79 mg/dL (40-60); HEMOLYSIS < 15 (0-50); LDL Cholesterol Calculated 140 mg/dL (<100); Potassium 4.3 mmol/L (3.4-5.1); Sodium 137 mmol/L (137-145); Total Protein 7.6 g/dL (6.3-8.2); Triglycerides 108 mg/dL (35-150)
[2022-10-10 19:49] LABS: Vitamin B12 633 pg/mL (239-931)
== END ==
PROVIDERS: Family Provider Internal Medicine; PCP Family Medicine; Referring Provider Family Medicine; Visit Provider Family Medicine
DX: D64.9 Anemia, unspecified (principal); E78.5 Hyperlipidemia, unspecified; I10 Essential (primary) hypertension; J18.9 Pneumonia, unspecified organism; R06.00 Dyspnea, unspecified; E53.8 Deficiency of other specified B group vitamins
CPT/HCPCS: 36415; 80053; 80061; 82607; 83540; 83550; 85025

== ENCOUNTER → 2023-06-24 11:28 | Outpatient (CLI) | payer OTHER, SELFPAY ==
[2022-07-28 15:21] VITALS: BMI 18.9
[2023-06-24 11:46] LABS: Appearance Urine UA TURBID; Bilirubin Urine UA 1+ (NEGATIVE); Color Urine UA RED; Glucose Urine UA NEGATIVE (Negative); Ketones Urine UA 1+ (NEGATIVE); Leukocyte Esterase Urine UA 1+ (NEGATIVE); Nitrite Urine UA NEGATIVE (Negative); Occult Blood Urine UA 3+ (Negative); Protein Urine UA 3+ (Negative)
[2023-06-24 11:48] LABS: pH Urine UA 7.5 (4.5-8.0)
[2023-06-24 11:50] LABS: Bacteria Urine Few (2-10); RBC Urine >100/HPF (0-5/HPF); Squamous Epithelial Cell Urine 1-5 /HPF (0-5/HPF); Urine Volume 10mL (spun); WBC Urine 30-100/HPF (0-5/HPF)
[2023-06-24 11:52] LABS: Ictotest Urine Negative (Negative)
== END ==
PROVIDERS: Family Provider Internal Medicine; PCP Family Medicine; Visit Provider Nurse Practitioner Family
DX: R31.9 Hematuria, unspecified (principal)
CPT/HCPCS: 81001; 87077; 87086; 87186

== ENCOUNTER → 2023-11-17 15:13 | Outpatient (CLI) | payer MEDICARE, SELFPAY ==
[2022-07-28 15:21] VITALS: BMI 18.9
== END ==
PROVIDERS: Family Provider Internal Medicine; PCP Family Medicine; Visit Provider Nurse Practitioner Family
DX: R30.0 Dysuria (principal)
CPT/HCPCS: 87077; 87086; 87186

== ENCOUNTER → 2024-02-28 15:23 | Outpatient (CLI) | payer MEDICARE, SELFPAY ==
[2022-07-28 15:21] VITALS: BMI 18.9
[2024-02-28 16:13] LABS: Influenza A - CEPHEID Flu A NEGATIVE (NEGATIVE); Influenza B - CEPHEID Flu B NEGATIVE (NEGATIVE); Respiratory Syncytial Virus Negative (Negative)
[2024-02-28 17:33] LABS: COVID-19 CEPHEID 4-PLEX PCR POSITIVE (Negative)
== END ==
PROVIDERS: Family Provider Internal Medicine; PCP Family Medicine; Visit Provider Physician Assistant Medical
DX: R05.9 Cough, unspecified (principal); R52 Pain, unspecified; R68.83 Chills (without fever)
CPT/HCPCS: 0241U

== ENCOUNTER → 2024-10-08 09:42 | Outpatient (CLI) | payer MEDICARE, SELFPAY ==
[2022-07-28 15:21] VITALS: BMI 18.9
[2024-10-08 10:40] LABS: Add Manual Diff / Slide Review NO; Hematocrit 46.2 % (36-46); Hemoglobin 15.8 g/dL (12.0-16.0); Lymphocytes Absolute Auto 2300 /uL (1100-4500); Mean Corpuscular HGB Conc 34.3 % (30-36); Mean Corpuscular Hemoglobin 34.8 PG (26-34); Mean Corpuscular Volume 101.4 fL (80-100); Platelet Count 410 X10^3/uL (150-400)
[2024-10-08 10:48] LABS: Hemoglobin A1C% w Est Avg Glu 5.6 % (4.0-6.0)
[2024-10-08 10:51] LABS: Ur Creatinine Normal (Normal); Ur Specific Gravity Normal (Normal); Urine MDMA Negative (Negative); Urine Methamphetamines Negative (Negative); Urine THC Positive (Negative); Urine Tricyclic Antidepressant Negative (Negative); Urine pH Normal (Normal)
[2024-10-08 10:57] LABS: Alanine Aminotransferase 25 IU/L (<35); Albumin 4.4 g/dL (3.5-5.0); Albumin Globulin Ratio 1.4 (1.0-2.8); Alkaline Phosphatase 54 U/L (38-126); Blood Urea Nitrogen 13 mg/dL (7-17); Calcium 9.5 mg/dL (8.4-10.2); Carbon Dioxide 29 mmol/L (22-32); Chloride 100 mmol/L (98-107); Cholesterol 262 mg/dL (140-199); Estimated Glomerular Filt Rate > 60 mL/min (>60); Globulin 3.2 g/dL (1.7-4.1); Glucose 121 mg/dL (70-99); HDL Cholesterol 91 mg/dL (40-60); HEMOLYSIS 18 (0-50); Potassium 4.8 mmol/L (3.4-5.1); Sodium 138 mmol/L (137-145); Total Protein 7.6 g/dL (6.3-8.2); Triglycerides 63 mg/dL (35-150)
[2024-10-08 11:26] LABS: TSH w/ Reflex to FT4 3.05 uIU/mL (0.47-4.68)
== END ==
PROVIDERS: Family Provider Internal Medicine; PCP Family Medicine; Referring Provider Family Medicine; Visit Provider Family Medicine
DX: J43.1 Panlobular emphysema (principal); I10 Essential (primary) hypertension; F41.8 Other specified anxiety disorders
CPT/HCPCS: 36415; 80053; 80061; 80305; 83036; 84443; 85025

== ENCOUNTER 2024-12-12 10:11 | Emergency (ER) | payer MEDICARE, MEDICAID, SELFPAY ==
[2022-07-28 15:21] VITALS: BMI 18.9
[2024-12-12] VITALS (9 sets, daily range): BP systolic 131–158; BP diastolic 83–101; PULSE 71–87; RESP 16–23; TEMP 36.6; O2SAT 89–95; BMI 16.4
--- NOTE | 2024-12-12 10:50 | DI.RAD.S_ITS ---
PROCEDURE: XR CHEST 1V INDICATIONS: Chest Pain TECHNIQUE: One view of the chest was acquired. COMPARISON: [facility], CR, XR CHEST 2V, 07/28/2017, 17:27. FINDINGS: Bilateral breast implants partially obscure radiographic detail. Mild bilateral diffuse peribronchial thickening, some of which may be related expiratory result; however, bronchitis, viral infection, asthma or other process should be considered. Mild calcifications of the aortic arch and mildly tortuous descending aorta. Mild S-shaped scoliosis mid and lower thoracic spine. No pneumothorax, no pleural effusion, no lobar consolidation. Cardiopericardial silhouette and pulmonary vasculature within normal limits. IMPRESSION: Peribronchial thickening as discussed above. If symptoms persist or worsen, or there is high clinical suspicion of thoracic abnormality, CT chest could be performed. Dictated by: Navid Patel M.D. on 12/12/2024 at 11:54 Approved by: Navid Patel M.D. on 12/12/2024 at 11:58
[2024-12-12] MEDS: ASPIRIN 81 MG CHEW TAB 324 MG PO (10:55)
--- NOTE | 2024-12-12 10:57 | EKG_ITS ---
[address] [address] Test Date: 2024-12-12 Pat Name: Vera Murrieta Department: [facility] Room: Gender: Female Tallow Maker: ANGEL : 1960 Requested By: Order Number: [id number] Reading MD: Albert Dueñas Measurements Intervals [place] Rate: 84 P: 89 AL: 172 QRS: 87 QRSD: 76 T: 79 QT: 360 QTc: 425 Interpretive Statements Normal sinus rhythm Septal infarct , age undetermined Electronically Signed On 12-12-2024 18:47:10 PDT by Albert Dueñas
[2024-12-12 11:08] LABS: Add Manual Diff / Slide Review SLIDE REVIEW; Hematocrit 43.8 % (36-46); Hemoglobin 14.9 g/dL (12.0-16.0); Lymphocytes Absolute Auto 2200 /uL (1100-4500); Mean Corpuscular HGB Conc 34.0 % (30-36); Mean Corpuscular Hemoglobin 33.9 PG (26-34); Mean Corpuscular Volume 99.7 fL (80-100); Platelet Count 409 X10^3/uL (150-400)
[2024-12-12 11:16] LABS: INR 1.0 (0.9-1.3); Prothrombin Time 11.2 SECONDS (9.4-12.5)
[2024-12-12 11:19] LABS: PTT Partial Thromboplastin Tim 31 SECONDS (25.1-36.5)
[2024-12-12 11:22] LABS: Alanine Aminotransferase 26 IU/L (<35); Albumin 4.7 g/dL (3.5-5.0); Albumin Globulin Ratio 1.3 (1.0-2.8); Alkaline Phosphatase 59 U/L (38-126); Blood Urea Nitrogen 10 mg/dL (7-17); Calcium 9.2 mg/dL (8.4-10.2); Carbon Dioxide 27 mmol/L (22-32); Chloride 99 mmol/L (98-107); Creatine Kinase 57 U/L (30-135); Estimated Glomerular Filt Rate > 60 mL/min (>60); Globulin 3.6 g/dL (1.7-4.1); Glucose 102 mg/dL (70-99); HEMOLYSIS < 15 (0-50); Lipase 139 U/L (23-300); Magnesium 1.9 mg/dL (1.6-2.3); Potassium 4.5 mmol/L (3.4-5.1); Sodium 134 mmol/L (137-145); Total Protein 8.3 g/dL (6.3-8.2)
[2024-12-12 11:34] LABS: NT-proBNP (BNP-Adult 18+) 21 pg/mL (<125); Troponin I < 0.012 ng/mL (0.01-0.034)
[2024-12-12 12:11] LABS: Macrocytosis 1+
--- NOTE | 2024-12-12 14:47 | DI.CT.S_ITS ---
PROCEDURE: CT HEAD/BRAIN WO CON INDICATIONS: dizziness TECHNIQUE: Noncontrast 4.5 mm thick angled axial sections acquired from the foramen magnum to the vertex, with coronal and sagittal reformats. For radiation dose reduction, the following was used: automated exposure control, adjustment of mA and/or kV according to patient size. COMPARISON: None. FINDINGS: Image quality: Diagnostic. CSF spaces: Basal cisterns are patent. No extra-axial fluid collections. The ventricles are symmetric in size and shape. Brain: No acute intracranial hemorrhage or mass effect. There is cerebral volume loss, with resultant ventricular and sulcal prominence. There are periventricular and deep white matter chronic small vessel ischemic changes. There is intracranial internal carotid artery atherosclerosis. Low lying cerebellar tonsils with crowding of the foramen magnum. Skull and face: Calvarium and visualized facial bones appear intact, without suspicious lesions. Sinuses: Visualized sinuses and mastoids are clear. IMPRESSION: No acute intracranial pathology. Mildly low lying cerebellar tonsils. Approved by: Dnaish Kong M.D. on 12/12/2024 at 15:09
--- NOTE | 2024-12-12 14:50 | ED.DIZZY ---
HPI - Dizziness General Chief Complaint: Syncope Stated Complaint: syncope, high bp 160/100, 95 pulse Time Seen by Provider: 12/12/24 14:30 History of Present Illness HPI Narrative: This is a 64-year-old female presenting with dizziness. Symptoms have been ongoing for at least 3 days, she verbally describes it as spinning and lightheadedness. Says it while bending over today to wash her hair she felt like she might pass out. Did have some tinnitus recently and has a history of Meniere's disease. Not having any ear pain not having any headache no chest pain or shortness of breath no fevers no focal numbness or weakness or difficulty with speech. Not endorsing dizziness at the time she is seen. Dizziness does not seem to be associated with changes in position. States that she was recently started on a statin no other recent medication changes. Related Data Home Medications ?Medication ?Instructions ?Recorded ?Confirmed mullein leaf PO 09/21/23 10/21/24 Previous Rx's ?Medication ?Instructions ?Recorded montelukast 10 mg tablet 10 mg PO BEDTIME #30 tabs 05/07/23 meloxicam 7.5 mg tablet 7.5 mg PO DAILY #30 tabs 09/21/23 bupropion HCl 150 mg tablet,12 hr 150 mg PO QAM #90 ea 04/04/24 sustained-release (Wellbutrin SR) conjugated estrogens 0.625 mg/gram 0.3125 mg vaginal 3XW #30 grams 04/04/24 vaginal cream venlafaxine 75 mg capsule,extended 75 mg PO DAILY #90 caps 04/04/24 release 24 hr (Effexor XR) albuterol sulfate 90 mcg/actuation 2 puff inhalation Q4-6H PRN asthma 10/07/24 aerosol inhaler #18 grams clotrimazole 1 % topical cream 1 applic topical TID #30 grams 10/07/24 prednisone 20 mg tablet 20 mg PO DAILY #5 tabs 10/07/24 tretinoin 0.05 % topical cream 1 applic topical QPM #45 grams 10/17/24 atorvastatin 10 mg tablet 10 mg PO BEDTIME #90 tabs 10/21/24 triamcinolone acetonide 0.5 % 1 applic topical BID #15 grams 10/21/24 topical cream fluticasone propionate 115 2 puff inhalation BID #12 grams 11/18/24 mcg-salmeterol 21 mcg/actuation HFA inhaler (Advair HFA) Allergies Allergy/AdvReac Type Severity Reaction Status Date / Time No Known Drug Allergies Allergy Verified 10/21/24 13:03 Patient History Medical History Weight loss, abnormal Vaginal atrophy Osteoarthritis COPD (chronic obstructive pulmonary disease) Osteopenia Preventative health care Elevated liver enzymes Seasonal allergies Encounter for smoking cessation counseling Colon cancer screening Hyperlipidemia Depression, major, recurrent, moderate Essential hypertension Anemia Anxiety and depression Pancreatitis History of ITP Asthma Surgical History History of splenectomy Family History Father Hypertension Mother Stroke Brother CAD (coronary artery disease) Brother Renal failure Social History household members: children alcohol intake: current alcohol intake frequency: 0-2 drinks per day Alcohol type: wine Exam Narrative Exam Narrative: Vital signs are reviewed and unremarkable. Head is atraumatic pupils are equal round and reactive extraocular movements are intact there is no nystagmus. TMs are clear. No facial droop or asymmetry no focal weakness no ataxia on [id number] negative Romberg speech is fluent ambulatory with a steady gait No carotid bruit Regular rhythm rate no murmur rub or gallop Lungs are clear Initial Vital Signs Initial Vital Signs: Vital Signs Temperature 97.8 F 12/12/24 10:51 Pulse Rate 87 12/12/24 10:51 Respiratory Rate 16 12/12/24 10:51 Blood Pressure 148/83 H 12/12/24 10:51 Pulse Oximetry 94 12/12/24 10:51 Oxygen Delivery Method Room Air 12/12/24 10:51 Course Orders Ordered: ED Orders 12/12/24 10:50 XR chest 1V Stat EKG-12 Lead Stat 12/12/24 11:00 Complete Blood Count AUTO DIFF Stat Comprehensive Metabolic Panel Stat Lipase Stat Magnesium Stat NT-proBNP (BNP-Adult 18+) Stat PTT Partial Thromboplastin Ronald Stat Prothrombin Time INR Stat Troponin & CK Cardiac Panel Stat 12/12/24 14:47 CT head/brain wo con Stat Discontinued Medications Aspirin (Aspirin 81 Mg Chew Tab) 324 mg PO NOW ONE Stop: 12/12/24 10:51 Last Admin: 12/12/24 10:55 Dose: 324 mg Documented By: CTS Vital Signs Vital signs: Vital Signs - 8 hr 12/12/24 10:51 12/12/24 13:02 12/12/24 13:03 Temperature 97.8 F Pulse Rate 87 76 Respiratory Rate 16 18 Blood Pressure 148/83 H 158/101 H 158/101 H Pulse Oximetry 94 89 L Oxygen Delivery Method Room Air Room Air 12/12/24 13:30 12/12/24 13:30 12/12/24 14:00 Temperature Pulse Rate 71 74 Respiratory Rate 21 18 Blood Pressure 153/95 H Pulse Oximetry 92 91 Oxygen Delivery Method 12/12/24 14:00 Temperature Pulse Rate Respiratory Rate Blood Pressure 147/90 H Pulse Oximetry Oxygen Delivery Method MDM - Dizziness Lab Data Lab results narrative: No significant abnormality on CBC or CMP troponin is normal 12/12/24 11:00 12/12/24 11:00 Labs: Lab Results 12/12/24 Range/Units 11:00 WBC 7.2 (4.5-11.0) X10^3/uL RBC 4.39 (4.0-5.2) X10^6/uL Hgb 14.9 (12.0-16.0) g/dL Hct 43.8 (36-46) % MCV 99.7 (80-100) fL MCH 33.9 (26-34) PG MCHC 34.0 (30-36) % RDW 13.0 (11.6-14.8) % Plt Count 409 H (150-400) X10^3/uL Neut % (Auto) 53.2 (50-75) % Lymph % (Auto) 31.3 (25-40) % Banner % (Auto) 11.5 (3-14) % Eos % (Auto) 2.4 (2-4) % Baso % (Auto) 1.6 (0-2) % Neut # (Auto) 3800 (6123-5086) /uL Lymph # (Auto) 2200 (2295-6283) /uL Banner # (Auto) 800 (0-900) /uL Eos # (Auto) 200 (0-450) /uL Baso # (Auto) 100 (0-100) /uL RBC Morphology See below Macrocytosis 1+ H PT 11.2 (9.4-12.5) SECONDS INR 1.0 (0.9-1.3) APTT 31 (25.1-36.5) SECONDS Sodium 134 L (137-145) mmol/L Potassium 4.5 (3.4-5.1) mmol/L Chloride 99 (98-107) mmol/L Carbon Dioxide 27 (22-32) mmol/L BUN 10 (7-17) mg/dL Creatinine 0.56 (0.52-1.04) mg/dL Estimated GFR > 60 (>60) mL/min BUN/Creatinine Ratio 17.9 (6-22) Glucose 102 H (70-99) mg/dL Calcium 9.2 (8.4-10.2) mg/dL Magnesium 1.9 (1.6-2.3) mg/dL Total Bilirubin 0.6 (0.2-1.3) mg/dL AST 41 H (14-36) IU/L ALT 26 (<35) IU/L Alkaline Phosphatase 59 (38-126) U/L Total Creatine Kinase 57 (30-135) U/L Troponin I < 0.012 (0.01-0.034) ng/mL NT-Pro-B Natriuret Pep 21 (<125) pg/mL Total Protein 8.3 H (6.3-8.2) g/dL Albumin 4.7 (3.5-5.0) g/dL Globulin 3.6 (1.7-4.1) g/dL Albumin/Globulin Ratio 1.3 (1.0-2.8) Lipase 139 (23-300) U/L Imaging Data Chest x-ray: My Impression: Independently reviewed chest x-ray, no acute infiltrate or heart failure Radiologist's Impression: Reviewed radiology report, no definite acute abnormality identified, discussion of peribronchial cuffing. CT scan - head: My Impression: Independently reviewed CT head, no acute finding Radiologist's Impression: Reviewed radiology report, no acute findings ECG Data Attestation: I personally reviewed and interpreted this ECG as follows: (ECG shows normal sinus rhythm at 84. Old septal infarct no acute ST segment changes normal QTC ) MDM Narrative Medical decision making narrative: 64-year-old female here with a complaint of dizziness. Describes it variably as lightheadedness/presyncope and spinning. Her exam is quite reassuring. I considered but do not suspect stroke, CT was done and I think had a good likelihood of finding a stroke after 3 days of symptoms. Does not appear to have a cerumen impaction, no nystagmus on exam may have peripheral vertigo but if so this seems mild. She was concerned about elevated blood pressure, blood pressures are not excessively elevated here and I think can be appropriately followed up with her primary care provider. Discharge Plan Departure Patient Disposition: Home Clinical Impression: Dizziness Activity Restrictions/Additional Instructions: Emergency department workup today is reassuring. I do not think that there is a dangerous cause for her dizziness and hopefully this is going to get better soon. In the meantime, continue previous home medications and get adequate rest and fluids. If you are having disabling dizziness headaches new numbness or weakness or other acute symptoms recheck in the emergency department. Follow up soon with the primary care provider. Prescriptions: No Action montelukast 10 mg tablet 10 mg PO BEDTIME Qty: 30 3RF tretinoin 0.05 % cream 1 applic topical QPM Qty: 45 1RF fluticasone propion-salmeterol [Advair HFA] 115-21 mcg/actuation HFA aerosol inhaler 2 puff inhalation BID Qty: 12 3RF mullein leaf PO meloxicam 7.5 mg tablet 7.5 mg PO DAILY Qty: 30 3RF venlafaxine [Effexor XR] 75 mg capsule,extended release 24hr 75 mg PO DAILY Qty: 90 3RF bupropion HCl [Wellbutrin SR] 150 mg tablet sustained-release 12 hr 150 mg PO QAM Qty: 90 3RF conjugated estrogens 0.625 mg/gram cream 0.3125 mg vaginal 3XW Qty: 30 1RF Rx Instructions: every sunday, sunday, sunday atorvastatin 10 mg tablet 10 mg PO BEDTIME Qty: 90 3RF triamcinolone acetonide 0.5 % cream 1 applic topical BID Qty: 15 1RF clotrimazole 1 % cream 1 applic topical TID Qty: 30 1RF Rx Instructions: Applied to affected areas on arms albuterol sulfate 90 mcg/actuation HFA aerosol inhaler 2 puff Inhalation Q4-6H PRN (Reason: asthma) Qty: 18 5RF prednisone 20 mg tablet 20 mg PO DAILY Qty: 5 0RF Rx Instructions: Use the event of a COPD exacerbation Referrals: Misael Durbin DO [Primary Care Provider, [facility]] Stand Alone Forms: Patient Portal/API
== END 2024-12-12 15:44 | disposition home or self-care (01) ==
PROVIDERS: Emergency Provider Emergency Medicine; Family Provider Internal Medicine; PCP Family Medicine
DX: R42 Dizziness and giddiness (principal)
CPT/HCPCS: 70450; 71045; 80053; 82550; 83690; 83735; 83880; 84484; 85025; 85610; 85730; 93005; 99283; 99284